=== PATIENT | female | born 1930 | race African-American/Black ===

== ENCOUNTER 2017-01-25 17:37 | Inpatient (IN) | payer MEDICARE, MEDICAID ==
[~2017-01-25] VITALS: Ht 154.9 cm; Wt 59.4 kg
[~2017-01-25 17:37] MED LIST: DEPAKOTE250 MG PO; HALDOL1 MG ORAL; HEPARIN1000 UNIT/ SQ; NAMENDA10 MG ORAL; NAMENDA5 MG ORAL; NORVASC2.5 MG ORAL; RISPERDAL1 MG PO
[2017-01-25] MEDS ORDERED: DEPAKOTE ER250 MG ORAL (17:38)
--- NOTE | 2017-01-25 17:56 | Emergency Room Report ---
History of Present Illness General Chief Complaint: Seizure Source: Family Member, EMS Present Illness HPI This is an 86-year-old female brought in by ambulance after increased altered level consciousness. Patient gradual onset of symptoms. The patient was noted to have prior history dementia as well as the patient had no prior history of seizures. The patient had previously been hospitalized [facility] for altered mental status. Patient had the had not been reportedly vomiting or having any diarrhea. She had past history of colitis. Allergies: Coded Allergies: No Known Allergies (Unverified , 01/03/16) Patient History Past Medical History: see triage record Reviewed Nursing Documentation: PMH: Agreed, PSxH: Agreed Nursing Documentation-PMH Hx Hypertension: Yes Hx Cancer: No Hx Gastrointestinal Problems: Yes - Gastroenteritis, Colitis, acute gastritis Hx Alzheimer's Disease: Yes Hx Parkinson's Disease: Yes Review of Systems All Other Systems: limited - by mental status Physical Exam Vital Signs Date Time Temp Pulse Resp B/P Pulse Ox O2 Delivery O2 Flow Rate FiO2 01/25/17 17:27 97.3 85 20 116/59 99 Nasal Cannula 2.0 Sp02 EP Interpretation: reviewed, normal General Appearance: normal inspection, alert, thin, Chronically Ill Head: atraumatic ENT: normal ENT inspection, hearing grossly normal, normal voice Neck: normal inspection, full range of motion, supple, no bony tend Respiratory: normal inspection, lungs clear, normal breath sounds, no respiratory distress, no retraction, no wheezing Cardiovascular #1: regular rate, rhythm, no edema Gastrointestinal: normal inspection, normal bowel sounds, non tender, soft, no guarding, no hernia Genitourinary: no CVA tenderness Musculoskeletal: normal inspection, back normal, normal range of motion Neurologic: normal inspection, alert, oriented x3, responsive, assistant in nursing III-XII nml as tested, speech normal Psychiatric: normal inspection, judgement/insight normal, mood/affect normal Skin: normal inspection, normal color, no rash Medical Decision Making Diagnostic Impression: Primary Impression: Encephalopathy Additional Impressions: Non-STEMI (non-ST elevated myocardial infarction) Dementia ER Course Patient presented for altered mental status.Differential diagnosis included but was not limited to ischemic stroke, subarachnoid hemorrhage, hypoglycemia, spinal cord injury, neurodegenerative disorder, urinary tract infection, hypoxemia.Because of complexity of patient's case laboratory testing and imaging studies were ordered. Patient was poorly cooperative and was given IV ativan for agitation. She waqs started on IV antibiorics for UTI. Patient was given rectal aspirin Dr. Costa was contacted for inpatient management. Labs Test 01/25/17 18:00 White Blood Count 8.4 K/UL (4.8-10.8) Red Blood Count 4.30 M/UL (4.20-5.40) Hemoglobin 11.6 G/DL (12.0-16.0) Hematocrit 37.1 % (37.0-47.0) Mean Corpuscular Volume 86 FL (80-99) Mean Corpuscular Hemoglobin 26.9 PG (27.0-31.0) Mean Corpuscular Hemoglobin Concent 31.2 G/DL (32.0-36.0) Red Cell Distribution Width 12.7 % (11.6-14.8) Platelet Count 197 K/UL (150-450) Mean Platelet Volume 7.9 FL (6.5-10.1) Neutrophils (%) (Auto) 61.1 % (45.0-75.0) Lymphocytes (%) (Auto) 30.1 % (20.0-45.0) Monocytes (%) (Auto) 7.3 % (1.0-10.0) Eosinophils (%) (Auto) 0.6 % (0.0-3.0) Basophils (%) (Auto) 0.9 % (0.0-2.0) Prothrombin Time 11.0 SEC (9.30-11.50) Prothromb Time International Ratio 1.1 (0.9-1.1) Activated Partial Thromboplast Time 24 SEC (23-33) Sodium Level 142 mEQ/L (135-145) Potassium Level 4.3 mEQ/L (3.4-4.9) Chloride Level 103 mEQ/L (98-107) Carbon Dioxide Level 21 mEQ/L (20-30) Anion Gap 18 (5-15) Blood Urea Nitrogen 14 mg/dL (7-23) Creatinine 0.8 mg/dL (0.5-0.9) Estimat Glomerular Filtration Rate mL/min (>60) Glucose Level 116 mg/dL (74-106) Lactic Acid Level 1.20 mmol/L (0.66-2.22) Calcium Level 10.0 mg/dL (8.6-10.2) Total Bilirubin 0.2 mg/dL (0.0-1.2) Aspartate Amino Transf (AST/SGOT) 15 U/L (5-40) Alanine Aminotransferase (ALT/SGPT) 7 U/L (3-33) Alkaline Phosphatase 106 U/L (35-104) Ammonia 25 umol/L (11-51) Total Creatine Kinase 72 U/L (26-140) Creatine Kinase MB 3.3 ng/mL (< 3.8) Creatine Kinase MB Relative Index 4.5 Troponin I 0.57 ng/mL (<=0.30) Total Protein 7.7 g/dL (6.6-8.7) Albumin 3.7 g/dL (3.5-5.2) Globulin 4.0 g/dL Albumin/Globulin Ratio 0.9 (1.0-2.7) EKG Diagnostic Results Rate: tachycardiac Rhythm: NSR ST Segments: no acute changes ASA given to the pt in ED: Yes - rectal Rhythm Strip Diag. Results EP Interpretation: yes Rhythm: NSR - 90s, no PVC's, no ectopy Last Vital Signs Date Time Temp Pulse Resp B/P Pulse Ox O2 Delivery O2 Flow Rate FiO2 01/25/17 17:27 97.3 85 20 116/59 99 Nasal Cannula 2.0 Status: unchanged Disposition: ADMITTED INPATIENT Condition: Serious Thiago Bansal Jan 25, 2017 17:56
[2017-01-25 17:59] VITALS: BP 132/102
[2017-01-25 18:12] LABS: BASOPHILS % (AUTO) 0.9 % (0.0-2.0); EOSINOPHILS % (AUTO) 0.6 % (0.0-3.0); LYMPHOCYTES % (AUTO) 30.1 % (20.0-45.0); MEAN CORPUSCULAR HEMOGLOBIN 26.9 PG (27.0-31.0); MEAN CORPUSCULAR HGB CONC 31.2 G/DL (32.0-36.0); MEAN CORPUSCULAR VOLUME 86 FL (80-99); MEAN PLATELET VOLUME 7.9 FL (6.5-10.1); MONOCYTES % (AUTO) 7.3 % (1.0-10.0); NEUTROPHILS % (AUTO) 61.1 % (45.0-75.0); PLATELET COUNT 197 K/UL (150-450); RED CELL DISTRIBUTION WIDTH 12.7 % (11.6-14.8); WHITE BLOOD COUNT 8.4 K/UL (4.8-10.8)
[2017-01-25 18:22] LABS: INR 1.1 (0.9-1.1)
[2017-01-25 18:31] LABS: AMMONIA 25 umol/L (11-51)
[2017-01-25 18:32] LABS: ALANINE AMINOTRANSFERASE 7 U/L (3-33); ALBUMIN/GLOBULIN RATIO 0.9 (1.0-2.7); ANION GAP 18 (5-15); ASPARTATE AMINO TRANSFERASE 15 U/L (5-40); CARBON DIOXIDE 21 mEQ/L (20-30); CHLORIDE 103 mEQ/L (98-107); CREATININE 0.8 mg/dL (0.5-0.9); HEMOLYSIS 15; POTASSIUM 4.3 mEQ/L (3.4-4.9); SODIUM 142 mEQ/L (135-145); TOTAL PROTEIN 7.7 g/dL (6.6-8.7)
[2017-01-25 18:37] LABS: TROPONIN I 0.57 ng/mL (<=0.30)
[2017-01-25 18:42] LABS: CKMB 3.3 ng/mL (< 3.8)
[2017-01-25] MEDS ORDERED: LORazepam Inj 2mg/ml 1ml IM ONE (18:45)
[2017-01-25 19:33] VITALS: BP 107/68
[2017-01-25 19:46] LABS: APPEARANCE,URINE CLEAR; KETONES,URINE NEGATIVE (NEGATIVE); LEUKOCYTE ESTERASE ,URINE 3+ (NEGATIVE); NITRITE,URINE POSITIVE (NEGATIVE); PH,URINE 6 (4.5-8.0); PROTEIN,URINE 1+ (NEGATIVE); UROBILINOGEN,URINE NORMAL MG/DL (0.0-1.0)
[2017-01-25 20:21] LABS: RBC,URINE 0-2 /HPF (0 - 2)
[2017-01-25 20:22] LABS: BACTERIA,URINE MANY /HPF; SQUAMOUS EPITHELIAL CELL,UR FEW /LPF (NONE/OCC)
[2017-01-25] MEDS ORDERED: cefTRIAXone 1 GM in D5W 55 ML IVPB ONE (20:45)
[2017-01-25] MEDS ORDERED: DOCUSATE SODIU100 MG ORAL (20:49)
[2017-01-25] MEDS ORDERED: FLEET ENEMA133 ML RECTAL (20:50)
[2017-01-25] MEDS ORDERED: BISACODYL5 MG ORAL (20:50)
[2017-01-25] MEDS ORDERED: MILK OF MA400 MG/51 ORAL (20:50)
[2017-01-25] MEDS ORDERED: MULTIVITAMINS1 EAC8 ORAL (20:51)
[2017-01-25] MEDS ORDERED: SENNOSIDES8.6 MG ORAL (20:52)
[2017-01-25] MEDS ORDERED: Acetaminophen 500mg (ES) tab ORAL PRN (21:00)
[2017-01-25] MEDS ORDERED: Milk of Magnesia 30ml Ud ORAL PRN (21:00)
[2017-01-25] MEDS ORDERED: Fleet's Enema 133ml RECTAL ONE (21:15)
[2017-01-25 21:20] VITALS: BP 105/70
[2017-01-25 21:55] VITALS: BP 106/71
[2017-01-25] MEDS: Docusate 100mg tablet ORAL SCH (22:00)
[2017-01-25] MEDS ORDERED: Enoxaparin 40mg Inj SUBQ SCH (23:00)
[2017-01-26 00:13] VITALS: BP 114/75
[2017-01-26 04:06] VITALS: BP 116/59
[2017-01-26 07:51] LABS: EOSINOPHILS % (AUTO) 1.9 % (0.0-3.0); LYMPHOCYTES % (AUTO) 30.6 % (20.0-45.0); MEAN CORPUSCULAR HEMOGLOBIN 27.3 PG (27.0-31.0); MEAN CORPUSCULAR HGB CONC 31.9 G/DL (32.0-36.0); MEAN CORPUSCULAR VOLUME 86 FL (80-99); MEAN PLATELET VOLUME 7.3 FL (6.5-10.1); MONOCYTES % (AUTO) 7.1 % (1.0-10.0); NEUTROPHILS % (AUTO) 59.4 % (45.0-75.0); PLATELET COUNT 175 K/UL (150-450); RED BLOOD COUNT 4.22 M/UL (4.20-5.40); RED CELL DISTRIBUTION WIDTH 13.4 % (11.6-14.8)
[2017-01-26 08:07] LABS: TROPONIN I < 0.30 ng/mL (<=0.30)
[2017-01-26 08:08] LABS: ALANINE AMINOTRANSFERASE 7 U/L (3-33); ALBUMIN/GLOBULIN RATIO 0.8 (1.0-2.7); ANION GAP 16 (5-15); ASPARTATE AMINO TRANSFERASE 15 U/L (5-40); CALCIUM 9.8 mg/dL (8.6-10.2); CARBON DIOXIDE 22 mEQ/L (20-30); CHLORIDE 107 mEQ/L (98-107); CHOLESTEROL 192 mg/dL (< 200); CHOLESTEROL/HDL RATIO 3.6 (3.3-4.4); CREATININE 0.7 mg/dL (0.5-0.9); HEMOLYSIS 2; LDL CHOLESTEROL (CALC.) 124 mg/dL (60-99); POTASSIUM 4.2 mEQ/L (3.4-4.9); SODIUM 145 mEQ/L (135-145); TOTAL PROTEIN 7.3 g/dL (6.6-8.7)
[2017-01-26 08:22] LABS: HEMOGLOBIN A1C 5.5 % (< 6.0)
[2017-01-26 08:40] VITALS: BP 100/60
[2017-01-26] MEDS ORDERED: Memantine 10mg tab ORAL SCH (09:00)
[2017-01-26] MEDS ORDERED: Aspirin EC 325mg tab ORAL SCH (09:00)
[2017-01-26] MEDS: Depakote 125mg Sprinkles ORAL SCH ×2 (09:47→21:00)
[2017-01-26] MEDS: Docusate 100mg tablet ORAL SCH ×2 (09:47→21:00)
[2017-01-26] MEDS: Enoxaparin 40mg Inj SUBQ SCH (09:48)
--- NOTE | 2017-01-26 10:15 | Diagnostic Imaging Report ---
Indications: 86-year-old female with increased altered level of consciousness, gradual onset of symptoms, prior history of dementia. Technique: Spiral acquisitions obtained through the brain. Angled axial and coronal 5 x 5 mm slices were reconstructed. Total dose length product 1368 mGycm. CTDI vol(s) 70 mGy Comparison: None Findings: No acute hemorrhage or edema. No mass effect or midline shift. Is marked age-related enlargement of ventricles and extra-axial spaces, and considerable periventricular deep white matter chronic ischemic change. The calvarium is intact. There is minimal ethmoid sinus mucosal disease. The mastoids are clear Impression: Chronic and age-related changes. Negative for acute intracranial bleed or mass effect The CT scanner at [facility] is accredited by the [employer] and the scans are performed using protocols designed to limit radiation exposure to as low as reasonably achievable to attain images of sufficient resolution adequate for diagnostic evaluation.
[2017-01-26 11:40] VITALS: BP 116/83
[2017-01-26] MEDS ORDERED: RisperiDONE 0.25mg tab ORAL PRN (13:00)
--- NOTE | 2017-01-26 13:06 | Neurology Progress Note ---
Objective Physical Exam Last Vital Signs Date Time Temp Pulse Resp B/P Pulse Ox O2 Delivery O2 Flow Rate FiO2 01/26/17 11:40 97.3 85 20 116/83 96 Room Air 01/26/17 04:06 2.0 01/26/17 01:24 28 Laboratory Tests Test 01/25/17 18:00 01/25/17 19:24 01/26/17 07:28 White Blood Count 8.4 K/UL (4.8-10.8) 6.0 K/UL (4.8-10.8) Red Blood Count 4.30 M/UL (4.20-5.40) 4.22 M/UL (4.20-5.40) Hemoglobin 11.6 G/DL (12.0-16.0) L 11.5 G/DL (12.0-16.0) L Hematocrit 37.1 % (37.0-47.0) 36.1 % (37.0-47.0) L Mean Corpuscular Volume 86 FL (80-99) 86 FL (80-99) Mean Corpuscular Hemoglobin 26.9 PG (27.0-31.0) L 27.3 PG (27.0-31.0) Mean Corpuscular Hemoglobin Concent 31.2 G/DL (32.0-36.0) L 31.9 G/DL (32.0-36.0) L Red Cell Distribution Width 12.7 % (11.6-14.8) 13.4 % (11.6-14.8) Platelet Count 197 K/UL (150-450) 175 K/UL (150-450) Mean Platelet Volume 7.9 FL (6.5-10.1) 7.3 FL (6.5-10.1) Neutrophils (%) (Auto) 61.1 % (45.0-75.0) 59.4 % (45.0-75.0) Lymphocytes (%) (Auto) 30.1 % (20.0-45.0) 30.6 % (20.0-45.0) Monocytes (%) (Auto) 7.3 % (1.0-10.0) 7.1 % (1.0-10.0) Eosinophils (%) (Auto) 0.6 % (0.0-3.0) 1.9 % (0.0-3.0) Basophils (%) (Auto) 0.9 % (0.0-2.0) 1.0 % (0.0-2.0) Prothrombin Time 11.0 SEC (9.30-11.50) Prothromb Time International Ratio 1.1 (0.9-1.1) Activated Partial Thromboplast Time 24 SEC (23-33) Sodium Level 142 mEQ/L (135-145) 145 mEQ/L (135-145) Potassium Level 4.3 mEQ/L (3.4-4.9) 4.2 mEQ/L (3.4-4.9) Chloride Level 103 mEQ/L (98-107) 107 mEQ/L (98-107) Carbon Dioxide Level 21 mEQ/L (20-30) 22 mEQ/L (20-30) Anion Gap 18 (5-15) H 16 (5-15) H Blood Urea Nitrogen 14 mg/dL (7-23) 12 mg/dL (7-23) Creatinine 0.8 mg/dL (0.5-0.9) 0.7 mg/dL (0.5-0.9) Estimat Glomerular Filtration Rate mL/min (>60) mL/min (>60) Glucose Level 116 mg/dL (74-106) H 95 mg/dL (74-106) Lactic Acid Level 1.20 mmol/L (0.66-2.22) Calcium Level 10.0 mg/dL (8.6-10.2) 9.8 mg/dL (8.6-10.2) Total Bilirubin 0.2 mg/dL (0.0-1.2) 0.2 mg/dL (0.0-1.2) Aspartate Amino Transf (AST/SGOT) 15 U/L (5-40) 15 U/L (5-40) Alanine Aminotransferase (ALT/SGPT) 7 U/L (3-33) 7 U/L (3-33) Alkaline Phosphatase 106 U/L (35-104) H 101 U/L (35-104) Ammonia 25 umol/L (11-51) Total Creatine Kinase 72 U/L (26-140) Creatine Kinase MB 3.3 ng/mL (< 3.8) Creatine Kinase MB Relative Index 4.5 Troponin I 0.57 ng/mL (<=0.30) *H < 0.30 ng/mL (<=0.30) Total Protein 7.7 g/dL (6.6-8.7) 7.3 g/dL (6.6-8.7) Albumin 3.7 g/dL (3.5-5.2) 3.4 g/dL (3.5-5.2) L Globulin 4.0 g/dL 3.9 g/dL Albumin/Globulin Ratio 0.9 (1.0-2.7) L 0.8 (1.0-2.7) L Urine Color Pale yellow Urine Appearance Clear Urine pH 6 (4.5-8.0) Urine Specific [place] 1.020 (1.005-1.035) Urine Protein 1+ (NEGATIVE) H Urine Glucose (UA) Negative (NEGATIVE) Urine Ketones Negative (NEGATIVE) Urine Occult Blood Negative (NEGATIVE) Urine Nitrite Positive (NEGATIVE) H Urine Bilirubin Negative (NEGATIVE) Urine Urobilinogen Normal MG/DL (0.0-1.0) Urine Leukocyte Esterase 3+ (NEGATIVE) H Urine RBC 0-2 /HPF (0 - 2) Urine WBC 5-10 /HPF (0 - 2) H Urine Squamous Epithelial Cells Few /LPF (NONE/OCC) Urine Bacteria Many /HPF (NONE) H Hemoglobin A1c 5.5 % (< 6.0) Pro-B-Type Natriuretic Peptide 3454 pg/mL (0-450) H Triglycerides Level 69 mg/dL (< 150) Cholesterol Level 192 mg/dL (< 200) LDL Cholesterol 124 mg/dL (60-99) H HDL Cholesterol 54 mg/dL (> 60) Cholesterol/HDL Ratio 3.6 (3.3-4.4) Thyroid Stimulating Hormone (TSH) 1.710 uIU/mL (0.300-4.500) Impression/Recommendations Problems: (1) Syncope, vasovagal (2) Dementia arising in the senium and presenium Status: unchanged Recommendations #[id number] UBALDO JUSTICE Jan 26, 2017 13:06
--- NOTE | 2017-01-26 13:44 | History & Physical ---
History and Physical History & Physicial Seen and examined. Dictation completed Sherlyn Costa MD Jan 26, 2017 13:44
--- NOTE | 2017-01-26 13:47 | General Progress Note ---
Assessment/Plan Status: stable Assessment/Plan 1- Acute Encephalopathy 2- UTI 3- Troponin leak 4- Dementia 5- Parkinsonim-agitation 6- PAH-mild 7-CHF- Diastolic Plan Neuro Cardio Psych are consulted and notified Subjective ROS Limited/Unobtainable: Yes Allergies: Coded Allergies: No Known Allergies (Unverified , 01/03/16) Objective Last 24 Hour Vital Signs Date Time Temp Pulse Resp B/P Pulse Ox O2 Delivery O2 Flow Rate FiO2 01/26/17 11:40 97.3 85 20 116/83 96 Room Air 01/26/17 09:48 76 100/60 01/26/17 08:40 97.0 76 20 100/60 97 Room Air 01/26/17 08:00 88 01/26/17 04:06 97.0 78 20 116/59 96 Nasal Cannula 2.0 01/26/17 04:00 82 01/26/17 01:24 96 Nasal Cannula 2.0 01/26/17 01:24 Nasal Cannula 2.0 28 01/26/17 00:13 97.0 77 20 114/75 96 Nasal Cannula 2.0 01/26/17 00:00 83 01/25/17 21:55 97.0 91 20 106/71 100 Room Air 01/25/17 21:24 96 01/25/17 21:20 90 17 105/70 100 Room Air 01/25/17 21:20 90 17 105/70 100 Room Air 01/25/17 19:33 86 16 107/68 100 Room Air 01/25/17 17:59 60 20 132/102 99 Nasal Cannula 2.0 01/25/17 17:59 85 20 Nasal Cannula 2.0 01/25/17 17:27 97.3 85 20 116/59 99 Nasal Cannula 2.0 Intake and Output 01/25/17 01/26/17 19:00 07:00 Intake Total 0 ml Output Total 500 ml Balance 0 ml -500 ml Intake Oral 0 ml Output Urine Total 500 ml # Bowel Movements 4 Laboratory Tests 01/25/17 18:00: White Blood Count 8.4, Red Blood Count 4.30, Hemoglobin 11.6L, Hematocrit 37.1, Mean Corpuscular Volume 86, Mean Corpuscular Hemoglobin 26.9L, Mean Corpuscular Hemoglobin Concent 31.2L, Red Cell Distribution Width 12.7, Platelet Count 197, Mean Platelet Volume 7.9, Neutrophils (%) (Auto) 61.1, Lymphocytes (%) (Auto) 30.1, Monocytes (%) (Auto) 7.3, Eosinophils (%) (Auto) 0.6, Basophils (%) (Auto ) 0.9, Prothrombin Time 11.0, Prothromb Time International Ratio 1.1, Activated Partial Thromboplast Time 24, Sodium Level 142, Potassium Level 4.3, Chloride Level 103, Carbon Dioxide Level 21, Anion Gap 18H, Blood Urea Nitrogen 14, Creatinine 0.8, Estimat Glomerular Filtration Rate , Glucose Level 116H, Lactic Acid Level 1.20, Calcium Level 10.0, Total Bilirubin 0.2, Aspartate Amino Transf (AST/SGOT) 15, Alanine Aminotransferase (ALT/SGPT) 7, Alkaline Phosphatase 106H, Ammonia 25, Total Creatine Kinase 72, Creatine Kinase MB 3.3, Creatine Kinase MB Relative Index 4.5, Troponin I 0.57*H, Total Protein 7.7, Albumin 3.7, Globulin 4.0, Albumin/Globulin Ratio 0.9L 01/25/17 19:24: Urine Color Pale yellow, Urine Appearance Clear, Urine pH 6, Urine Specific [place] 1.020, Urine Protein 1+H, Urine Glucose (UA) Negative, Urine Ketones Negative, Urine Occult Blood Negative, Urine Nitrite PositiveH, Urine Bilirubin Negative, Urine Urobilinogen Normal, Urine Leukocyte Esterase 3+H, Urine RBC 0-2 , Urine WBC 5-10H, Urine Squamous Epithelial Cells Few, Urine Bacteria ManyH 01/26/17 07:28: White Blood Count 6.0, Red Blood Count 4.22, Hemoglobin 11.5L, Hematocrit 36.1L , Mean Corpuscular Volume 86, Mean Corpuscular Hemoglobin 27.3, Mean Corpuscular Hemoglobin Concent 31.9L, Red Cell Distribution Width 13.4, Platelet Count 175, Mean Platelet Volume 7.3, Neutrophils (%) (Auto) 59.4, Lymphocytes (%) (Auto) 30.6, Monocytes (%) (Auto) 7.1, Eosinophils (%) (Auto) 1.9, Basophils (%) (Auto) 1.0, Sodium Level 145, Potassium Level 4.2, Chloride Level 107, Carbon Dioxide Level 22, Anion Gap 16H, Blood Urea Nitrogen 12, Creatinine 0.7, Estimat Glomerular Filtration Rate , Glucose Level 95, Calcium Level 9.8, Total Bilirubin 0.2, Aspartate Amino Transf (AST/SGOT) 15, Alanine Aminotransferase (ALT/SGPT) 7, Alkaline Phosphatase 101, Troponin I < 0.30, Total Protein 7.3, Albumin 3.4L, Globulin 3.9, Albumin/Globulin Ratio 0.8L, Hemoglobin A1c 5.5, Pro-B-Type Natriuretic Peptide 3454H, Triglycerides Level 69 , Cholesterol Level 192, LDL Cholesterol 124H, HDL Cholesterol 54, Cholesterol/ HDL Ratio 3.6, Thyroid Stimulating Hormone (TSH) 1.710 Height (Feet): 5 Height (Inches): 1.00 Weight (Pounds): 131 General Appearance: no apparent distress EENT: PERRL/EOMI Neck: supple Cardiovascular: normal rate Respiratory/Chest: lungs clear Abdomen: soft Extremities: non-tender Neurologic: disoriented Sherlyn Costa MD Jan 26, 2017 13:47
[2017-01-26 16:00] VITALS: BP 106/60
[2017-01-26 20:00] VITALS: BP 120/66
--- NOTE | 2017-01-26 20:08 | Consultation ---
DATE OF CONSULTATION: 01/26/2017 NEUROLOGICAL CONSULTATION CONSULTING PHYSICIAN: Martínez Medeiros M.D. REQUESTING PHYSICIAN: Sherlyn Costa M.D. HISTORY OF PRESENT ILLNESS: The patient is an 86-year-old female seen in neurological consultation to evaluate transient loss of consciousness. Apparently, the patient who is a resident of nursing facility was being fed by personnel when she suddenly lost consciousness, become limp, unresponsive. She was immediately given oxygen, placed in the supine position. Paramedics were called to the scene. She was brought to this hospital for further assessment. On admission, blood pressure 116/59 and temperature 97.3. Laboratory work included normal CBC studies, normal coagulation panel, urinalysis 5 to 10 WBCs, 1+ protein. Chemistry panel remarkable for troponin being elevated 0.57 which with the followup troponin 0.20. Her anion gap of 18. Blood sugar 116. Calcium 10.0. Otherwise unremarkable study. Stat CT of the brain was obtained revealed considerable amount of periventricular deep white matter chronic ischemic changes. No midline shift. No acute stroke. No hemorrhage noted. Since admission until present, the patient had no further paroxysmal activities. Most recent assessment of this patient obtained in December 2015 when she was observed for progressive cognitive loss, which dates back to about . The patient developed evidence of advanced dementia. In addition she presented with parkinsonian features, this most likely was vascular. She has a history of hypertension and chronic anemia. MEDICATIONS: Prior to admission treatment list included amlodipine, Depakote 125 twice a day, Haldol 1 mg daily, magnesium, Namenda supplement, Risperdal 1 mg b.i.d. ALLERGIES: None reported. SOCIAL HISTORY: Resident of nursing facility where she described to be wheelchair-bound for the last 1-1/2 years, she displays no behavioral abnormalities although does not like to be touched. FAMILY HISTORY: Noncontributory. REVIEW OF SYSTEM: Unable to obtain due to the patient's status. PHYSICAL EXAMINATION: GENERAL: A well-developed, well-nourished female, lying in bed. Her family trying to feed her. VITAL SIGNS: Now stable. Blood pressure 118/72, respiration 18. HEENT: Head normocephalic. No evidence of trauma. Eyes, ears, and throat are clear. NECK: Rigid in all directions. MUSCULOSKELETAL: Remarkable for remaining with a flexed both lower extremities. Peripheral pulses 1+ symmetric. MENTAL STATUS: The patient is awake, but noncommunicating. She is mumbling not coherently. She does not follow any commands and does not follow any simple instructions. She is quite resisting to examination, showing and pushing away. CRANIAL NERVE II: Pupils 3 mm responding to light and accommodation. Extraocular movements full range. CRANIAL NERVE V: Normal corneal responses. CRANIAL NERVE VII: No gross asymmetry. CRANIAL NERVE VIII: Normal hearing. CRANIAL NERVES IX THROUGH XII: Normal gag response. Able to swallow. MOTOR EXAMINATION: Diffuse rigidity predominantly both lower extremities, flexor contracture both lower extremities. Deep tendon reflexes brisk bilaterally. Plantar response is mute. SENSORY EXAMINATION: Withdrawing to pin stimulation both upper and lower extremities. IMPRESSION: The patient is an 86-year-old female presenting with transient loss of consciousness most likely vasovagal syncope. 1. Senile dementia, advanced. 2. History of . 3. Polypharmacy. RECOMMENDATION: 1. Orthostatic blood pressure. 2. Oral hydration. 3. Avoid unessential treatment, stop Namenda not effective in advanced form of dementia. 4. Continue with Depakote 125 mg twice a day but discontinue Haldol. Risperdal may remain 1 mg a day but only as needed for agitation, maintain symptomatic treatment. Thank you for allowing me to see this interesting patient in neurological consultation. Martínez Medeiros M.D. DR: Ervin JOB#: [id number] CC:
--- NOTE | 2017-01-26 21:14 | Cardiology Progress Note ---
Assessment/Plan Assessment/Plan The patient is seen and examined, full consult note will be dictated. Objective Last 24 Hour Vital Signs Date Time Temp Pulse Resp B/P Pulse Ox O2 Delivery O2 Flow Rate FiO2 01/26/17 20:09 Room Air 01/26/17 20:00 98.1 73 21 120/66 96 Room Air 01/26/17 19:00 96 Room Air 01/26/17 16:00 98.0 70 22 106/60 97 Room Air 01/26/17 16:00 94 01/26/17 12:00 82 01/26/17 11:40 97.3 85 20 116/83 96 Room Air 01/26/17 09:48 76 100/60 01/26/17 08:40 97.0 76 20 100/60 97 Room Air 01/26/17 08:00 88 01/26/17 04:06 97.0 78 20 116/59 96 Nasal Cannula 2.0 01/26/17 04:00 82 01/26/17 01:24 96 Nasal Cannula 2.0 01/26/17 01:24 Nasal Cannula 2.0 28 01/26/17 00:13 97.0 77 20 114/75 96 Nasal Cannula 2.0 01/26/17 00:00 83 01/25/17 21:55 97.0 91 20 106/71 100 Room Air 01/25/17 21:24 96 01/25/17 21:20 90 17 105/70 100 Room Air 01/25/17 21:20 90 17 105/70 100 Room Air Intake and Output 01/25/17 01/26/17 19:00 07:00 Intake Total 0 ml Output Total 500 ml Balance 0 ml -500 ml Intake Oral 0 ml Output Urine Total 500 ml # Bowel Movements 4 Laboratory Tests Test 01/26/17 07:28 White Blood Count 6.0 K/UL (4.8-10.8) Red Blood Count 4.22 M/UL (4.20-5.40) Hemoglobin 11.5 G/DL (12.0-16.0) L Hematocrit 36.1 % (37.0-47.0) L Mean Corpuscular Volume 86 FL (80-99) Mean Corpuscular Hemoglobin 27.3 PG (27.0-31.0) Mean Corpuscular Hemoglobin Concent 31.9 G/DL (32.0-36.0) L Red Cell Distribution Width 13.4 % (11.6-14.8) Platelet Count 175 K/UL (150-450) Mean Platelet Volume 7.3 FL (6.5-10.1) Neutrophils (%) (Auto) 59.4 % (45.0-75.0) Lymphocytes (%) (Auto) 30.6 % (20.0-45.0) Monocytes (%) (Auto) 7.1 % (1.0-10.0) Eosinophils (%) (Auto) 1.9 % (0.0-3.0) Basophils (%) (Auto) 1.0 % (0.0-2.0) Sodium Level 145 mEQ/L (135-145) Potassium Level 4.2 mEQ/L (3.4-4.9) Chloride Level 107 mEQ/L (98-107) Carbon Dioxide Level 22 mEQ/L (20-30) Anion Gap 16 (5-15) H Blood Urea Nitrogen 12 mg/dL (7-23) Creatinine 0.7 mg/dL (0.5-0.9) Estimat Glomerular Filtration Rate mL/min (>60) Glucose Level 95 mg/dL (74-106) Hemoglobin A1c 5.5 % (< 6.0) Calcium Level 9.8 mg/dL (8.6-10.2) Total Bilirubin 0.2 mg/dL (0.0-1.2) Aspartate Amino Transf (AST/SGOT) 15 U/L (5-40) Alanine Aminotransferase (ALT/SGPT) 7 U/L (3-33) Alkaline Phosphatase 101 U/L (35-104) Troponin I < 0.30 ng/mL (<=0.30) Pro-B-Type Natriuretic Peptide 3454 pg/mL (0-450) H Total Protein 7.3 g/dL (6.6-8.7) Albumin 3.4 g/dL (3.5-5.2) L Globulin 3.9 g/dL Albumin/Globulin Ratio 0.8 (1.0-2.7) L Triglycerides Level 69 mg/dL (< 150) Cholesterol Level 192 mg/dL (< 200) LDL Cholesterol 124 mg/dL (60-99) H HDL Cholesterol 54 mg/dL (> 60) Cholesterol/HDL Ratio 3.6 (3.3-4.4) Thyroid Stimulating Hormone (TSH) 1.710 uIU/mL (0.300-4.500) Microbiology Date/Time Source Procedure Growth Status 01/25/17 19:24 Urine,Clean Catch Urine Culture - Preliminary Resulted LOBITO PAULSON Jan 26, 2017 21:14
[2017-01-26] MEDS: Metoprolol 25mg tab ORAL SCH (21:30)
[2017-01-26] MEDS: cefTRIAXone 2 GM in D5W 110 ML IVPB SCH (22:38)
--- NOTE | 2017-01-26 23:08 | Consultation ---
DATE OF CONSULTATION: 01/26/2017 HISTORY OF PRESENT ILLNESS: The patient is an 86-year-old female who was brought into the hospital via ambulance after altered mental status. During the evaluation, the patient is not able to provide any history, presents with impairment of memory, and is presenting waxing and waning consciousness. The patient has also multiple medical problems, including the abdominal pain with nausea, vomiting, diarrhea, history of delirium, dementia, . The patient's medical history was reviewed as the patient is unable to provide any past history. PAST PSYCHIATRIC HISTORY: Diagnosed with dementia in the past. No history of aggressive behavior. Mood is neutral. Affect is flat. Congruent with mood. Thought process, there is a paucity of thought content. Thought content, no suicidal or homicidal ideation. The patient is alert however disoriented. Cognition is impaired. PAST MEDICAL HISTORY: Dehydration, history of urinary tract infection, and abdominal pain. ALLERGIES: No known drug allergies. SUBSTANCE ABUSE HISTORY: No known history of illicit drug use or alcohol. MENTAL STATUS EXAMINATION: The patient is alert, oriented to self. Mood is dysphoric and anxious. Affect is constricted. Congruent mood. Thought process is concrete. Thought content, there is no suicidal or homicidal ideation. ASSESSMENT: AXIS I: Delirium due to general medical condition. AXIS II: Deferred. AXIS III: Urinary tract infection, troponin leak, parkinsonism. PLAN: 1. Start the patient on low-dose of antipsychotics. She would benefit from low-dose of antipsychotics, however, the risperidone makes parkinsonism or Parkinson disease worse therefore I will start the patient on Seroquel . 2. We will continue to reassess. Alan Garcia M.D. DR: Wero JOB#: [id number] CC:
[2017-01-27 00:17] VITALS: BP 117/62
--- NOTE | 2017-01-27 00:38 | Consultation ---
DATE OF CONSULTATION: 01/26/2017 CARDIOLOGY CONSULTATION REFERRING PHYSICIAN: Sherlyn Costa M.D. REASON FOR CONSULTATION: Management of elevation of troponin level. HISTORY OF PRESENT ILLNESS: The patient is a very unfortunate 86-year-old female with underlying dementia, who presents to the hospital with altered level of consciousness. According to the records the patient's altered level of consciousness is new and more than her baseline dementia. The patient on arrival to the emergency room had a blood pressure 116/59 and pulse of 85. Initial evaluation in the emergency department determined the patient has encephalopathy. First troponin level was elevated at 0.57. Therefore, the patient was admitted for non-ST elevation myocardial infarction. She did not have any chest pain or shortness of breath. Initial 12-lead electrocardiogram done in the emergency department was significant for sinus tachycardia with no ST and T-wave abnormalities. Cardiology consultation was made at request of Dr. Costa for further assessment and evaluation of elevation of troponin level. PAST MEDICAL HISTORY: Parkinson disease, Alzheimer disease, history of gastroenteritis, history of colitis, and history of hypertension. PAST SURGICAL HISTORY: None. MEDICATIONS: List of medication in the nursing facility includes amlodipine 2.5 mg p.o. daily, Depakote 125 mg p.o. q.12 h., bisacodyl 10 mg p.o. daily, Colace 100 mg p.o. twice daily, Haldol 1 mg p.o. daily, heparin 5000 subcutaneous q.12 h., milk of magnesia 30 mL daily, and Namenda 5 mg p.o. daily, multivitamin one tablet p.o. daily, fleet enema 133 mL rectal p.r.n. constipation, Risperdal 1 mg p.o. twice daily, and Sennosides 8.6 mg at bedtime. ALLERGIES: No known drug allergies. SOCIAL HISTORY: Resident of nursing facility. She is wheelchair-bound for the past one and half year. Displays no behavioral abnormalities. FAMILY HISTORY: No premature coronary artery disease in first-degree relatives. REVIEW OF SYSTEMS: HEENT: Denies any headache, diplopia, or blurred vision. Constitutional: Denies any fever, chills, night sweats, or weight loss. Cardiovascular: Denies any chest pain, shortness breath, PND, orthopnea, or leg swelling. Pulmonary: Denies any cough, hemoptysis, or wheezing. Gastrointestinal: Denies any nausea, vomiting, diarrhea, constipation, abdominal pain, or GI bleed. Genitourinary: Denies any hematuria, dysuria, or incontinence. Neurology: Denies any motor dysfunction, sensory deficits, or altered speech. PHYSICAL EXAMINATION: GENERAL: The patient is a very unfortunate chronically ill frail female, in no apparent respiratory distress. VITAL SIGNS: Blood pressure is 116/59, respirations of 20, pulse of 85, temperature 97.3 degrees Fahrenheit, and O2 saturation 99% on nasal cannula. HEENT: Atraumatic and normocephalic. Anicteric. Pupils are equal, round, and reactive to light and accommodation. Extraocular muscles intact. NECK: JVP is less than 5 cm. No carotid bruits. Carotid upstrokes 2+ bilaterally. CARDIOVASCULAR: Normal S1 and S2. Regular rate and rhythm. No murmurs, gallops, or rubs. PMI is at the fourth intercostal space in the midclavicular line. LUNGS: Clear to auscultation bilaterally. ABDOMEN: Soft, nontender, and nondistended. No hepatosplenomegaly. Positive bowel sounds. EXTREMITIES: No evidence of edema, clubbing, or cyanosis. LABORATORY AND DIAGNOSTIC DATA: WBC 8.4, hemoglobin 11.6, hematocrit 37.1, and platelet count is 197,000. Sodium 142, potassium 4.3, chloride 103, bicarbonate 21, BUN of 14, creatinine 0.8 and glucose 116. Calcium is 10. INR is 1.1. CT of head showed chronic and age-related changes. Negative for intracranial bleed or mass affect. The 12-lead electrocardiogram, sinus tachycardia, rate of 103 with normal axis and no ST and T-wave abnormalities and borderline QT interval. ASSESSMENT AND PLAN: This is a very unfortunate 86-year-old female, seen in Cardiology consultation at request of Dr. Costa. 1. Non-ST elevated troponin level in this patient, possible non ST elevation myocardial infarction, although the patient does not have any chest pain. She is severely demented and do not communicate at this time. I will continue with serial troponin I level. Keep the patient hydrated. Use statins, beta-blockers and aspirin. in the management of this condition is medical therapy in view of the patient's underlying dementia. I do not believe that the patient will be a candidate for invasive procedure. A 2D echocardiography will be done to assess the left ventricular systolic function. 2. History of Alzheimer dementia. 3. History of Parkinson disease. 4. History of gastroesophageal reflux disease/gastritis/colitis. 5. History of hypertension. I would like to thank, Dr. Costa, for allowing me to participate in care of this patient. Felix Jones M.D. DR: CHECO JOB#: [id number] CC:
--- NOTE | 2017-01-27 02:28 | History and Physical Report ---
DATE OF ADMISSION: 01/25/2017 SOURCE OF INFORMATION: Family member and caregiver. HISTORY OF PRESENT ILLNESS: The patient is a pleasant 86-year-old female with prior history of agitated dementia. The patient currently is a resident of a half-way, has been reported to have the weakness and loss of consciousness. The patient had been sitting at the time of event therefore, there is no report of fall or trauma. REVIEW OF SYSTEMS: Negative for chest pain. Negative for diarrhea. Negative for constipation. Negative for severe swelling or pain in the extremities. Limited evaluation secondary to the patient's dementia. PAST MEDICAL HISTORY: Dementia-agitated type, hypertension, and Parkinson. PAST SURGICAL HISTORY: None. ALLERGIES: NKDA. CODE STATUS: Full Code. FAMILY HISTORY: Reviewed, noncontributory. SOCIAL HISTORY: [facility]. No prior history of illicit drug abuse, smoking or alcohol abuse. PHYSICAL EXAMINATION: VITAL SIGNS: Blood pressure 130/80, temperature 98.2 degrees on room air, respiratory rate 18, and pulse oximetry 98% on 2 liters of oxygen. HEENT: Head and neck, atraumatic and normocephalic. CHEST: Clear to auscultation. HEART: S1 and S2. Regular rate and rhythm. ABDOMEN: Soft. No organomegaly. MUSCULOSKELETAL: Limited examination, as the patient is not following the commands, however, atrophied musculature of the extremities. NEUROLOGIC: Patient is awake. He is not alert. The patient is not following commands. The patient is not making a sensible meaningful conversation. LABORATORY AND DIAGNOSTIC DATA: Imaging CT scan of the brain dated, 01/26/2017 is negative for any acute intracranial changes. Hospital medications including, but not limited to amlodipine, Depakote, Namenda, multivitamin, and Risperdal. Lab results dated, 01/25/2017 showed WBC 8.4, hemoglobin 11.6, and platelets 197,000. Sodium 145, potassium 4.2, BUN 12, and creatinine 0.7. ALT and AST normal. Troponin is abnormal at 0.5. LDL 124. ASSESSMENT: 1. Acute encephalopathy. Differential diagnosis are cardiovascular versus Neurologic compromise 2. Abnormal troponin, possibility of acute coronary syndrome cannot be excluded. 3. Abnormal beta-natriuretic peptide, possibility of heart failure cannot be excluded. 4. Dementia. 5. Parkinson with agitation. 6. Urinary tract infection. 7. Gastrointestinal and deep vein thrombosis prophylaxis. PLAN OF CARE: Cardiology, Dr. Jones and Neurology Dr. Medeiros has been consulted. I will initiate the patient for UTI on intravenous Rocephin. We will follow input from Neurology service. Sherlyn Costa M.D. DR: ANDREW JOB#: [id number] CC: HENRIQUE
[2017-01-27 03:57] VITALS: BP 113/70
[2017-01-27 05:44] LABS: CHOLESTEROL/HDL RATIO 3.5 (3.3-4.4)
[2017-01-27 05:47] LABS: TROPONIN I < 0.30 ng/mL (<=0.30)
[2017-01-27 08:00] VITALS: BP 104/41
--- NOTE | 2017-01-27 08:50 | General Progress Note ---
Assessment/Plan Status: stable Assessment/Plan 1. Acute encephalopathy. Differential diagnosis are cardiovascular versus Neurologic compromise 2. Abnormal troponin, 3. Abnormal beta-natriuretic peptide, possibility of heart failure cannot be excluded. 4. Dementia. 5. Parkinson with agitation. 6. Urinary tract infection. 7. Gastrointestinal and deep vein thrombosis prophylaxis. 6- PAH-mild 7-CHF- Diastolic Plan Neuro Cardio Psych are reviewed continue with Rocephin Subjective ROS Limited/Unobtainable: Yes - due to sever dementia Allergies: Coded Allergies: No Known Allergies (Unverified , 01/03/16) Objective Last 24 Hour Vital Signs Date Time Temp Pulse Resp B/P Pulse Ox O2 Delivery O2 Flow Rate FiO2 01/27/17 08:00 98.5 92 16 104/41 95 Room Air 01/27/17 04:30 89 01/27/17 03:57 98.3 71 17 113/70 96 Room Air 01/27/17 00:17 98.8 76 19 117/62 93 Room Air 01/26/17 20:09 Room Air 01/26/17 20:00 98.1 73 21 120/66 96 Room Air 01/26/17 19:00 96 Room Air 01/26/17 16:00 98.0 70 22 106/60 97 Room Air 01/26/17 16:00 94 01/26/17 12:00 82 01/26/17 11:40 97.3 85 20 116/83 96 Room Air 01/26/17 09:48 76 100/60 Intake and Output 01/26/17 01/27/17 19:00 07:00 Intake Total 360 ml Output Total 300 ml 1100 ml Balance 60 ml -1100 ml Intake Oral 360 ml Output Urine Total 300 ml 1100 ml Laboratory Tests 01/27/17 03:10: Troponin I < 0.30, Triglycerides Level 81, Cholesterol Level 207H, LDL Cholesterol 132H, HDL Cholesterol 59, Cholesterol/HDL Ratio 3.5 Height (Feet): 5 Height (Inches): 1.00 Weight (Pounds): 131 General Appearance: WD/WN EENT: PERRL/EOMI Neck: supple Cardiovascular: normal rate Respiratory/Chest: lungs clear Abdomen: soft Extremities: non-tender Neurologic: disoriented Sherlyn Costa MD Jan 27, 2017 08:50
[2017-01-27] MEDS: Depakote 125mg Sprinkles ORAL SCH ×2 (09:35→21:54)
[2017-01-27] MEDS: Metoprolol 25mg tab ORAL SCH ×2 (09:35→21:55)
[2017-01-27] MEDS: Docusate 100mg tablet ORAL SCH ×2 (09:36→21:55)
[2017-01-27] MEDS: Aspirin EC 325mg tab ORAL SCH (09:36)
[2017-01-27] MEDS: Enoxaparin 40mg Inj SUBQ SCH (09:38)
--- NOTE | 2017-01-27 10:46 | Diagnostic Imaging Report ---
Indication: Chest Pain Comparison: 01/26/2017 A single view chest radiograph was obtained. Findings: There is a vague density projected over the left lung base. A small focal infiltrate may be present and is unchanged. Bones are osteopenic. Heart size is normal. Impression: Unidentified density near the left costophrenic angle. Followup suggested.
[2017-01-27 12:00] VITALS: BP 138/61
[2017-01-27 16:00] VITALS: BP 115/58
--- NOTE | 2017-01-27 18:35 | Cardiology Report ---
APPROVED REPORT EKG Measurement Heart [id number] Sinus tachycardia Cannot rule out Anterior infarct, age undetermined Abnormal ECG
[2017-01-27 20:00] VITALS: BP 145/79
[2017-01-27] MEDS: cefTRIAXone 2 GM in D5W 110 ML IVPB SCH (21:54)
[2017-01-28] VITALS: BP 140/73
[2017-01-28 04:24] VITALS: BP 150/64
[2017-01-28 07:30] VITALS: BP 155/89
[2017-01-28] MEDS: Docusate 100mg tablet ORAL SCH ×2 (08:10→21:54)
[2017-01-28] MEDS: Metoprolol 25mg tab ORAL SCH ×2 (08:10→21:54)
[2017-01-28] MEDS: Depakote 125mg Sprinkles ORAL SCH ×2 (08:11→21:54)
[2017-01-28] MEDS: Aspirin EC 325mg tab ORAL SCH (08:11)
[2017-01-28] MEDS: Enoxaparin 40mg Inj SUBQ SCH (08:12)
[2017-01-28 11:28] VITALS: BP 101/58
--- NOTE | 2017-01-28 11:42 | General Progress Note ---
Assessment/Plan Status: stable Assessment/Plan 1. Acute encephalopathy. Differential diagnosis are cardiovascular versus Neurologic compromise 2. Abnormal troponin, 3. Abnormal beta-natriuretic peptide, possibility of heart failure cannot be excluded. 4. Dementia. 5. Parkinson with agitation. 6. Urinary tract infection. 7. Gastrointestinal and deep vein thrombosis prophylaxis. 6- PAH-mild 7-CHF- Diastolic Plan Neuro Cardio Psych are reviewed continue with current management Subjective ROS Limited/Unobtainable: Yes - severe dementia Allergies: Coded Allergies: No Known Allergies (Unverified , 01/03/16) Objective Last 24 Hour Vital Signs Date Time Temp Pulse Resp B/P Pulse Ox O2 Delivery O2 Flow Rate FiO2 01/28/17 11:28 97.3 81 20 101/58 97 Room Air 01/28/17 08:11 62 155/89 01/28/17 08:10 62 155/89 01/28/17 08:00 65 01/28/17 07:30 97.7 62 20 155/89 97 Room Air 01/28/17 04:24 97.0 89 20 150/64 100 Room Air 01/28/17 04:00 86 01/28/17 00:00 79 01/28/17 00:00 97.0 86 20 140/73 99 Room Air 01/27/17 21:55 82 145/79 01/27/17 20:00 100.8 82 19 145/79 96 Room Air 01/27/17 20:00 77 01/27/17 16:00 80 01/27/17 16:00 99.7 88 20 115/58 100 Room Air 01/27/17 12:00 97.7 71 17 138/61 98 Room Air 01/27/17 12:00 68 Intake and Output 01/27/17 01/28/17 19:00 07:00 Intake Total 660 ml Output Total 320 ml 600 ml Balance 340 ml -600 ml Intake Oral 660 ml Output Urine Total 320 ml 600 ml Height (Feet): 5 Height (Inches): 1.00 Weight (Pounds): 131 General Appearance: no apparent distress EENT: PERRL/EOMI Neck: supple Cardiovascular: normal rate Respiratory/Chest: lungs clear Abdomen: soft Extremities: non-tender Neurologic: disoriented Sherlyn Costa MD Jan 28, 2017 11:42
[2017-01-28 16:00] VITALS: BP 134/74
[2017-01-28 19:00] VITALS: BP 148/83
[2017-01-28] MEDS: cefTRIAXone 2 GM in D5W 110 ML IVPB SCH (21:53)
--- NOTE | 2017-01-28 23:34 | Cardiology Progress Note ---
Assessment/Plan Assessment/Plan 1. Possible NSTEMI, 2nd and third troponin values however were normal, continue ASA, metoprolol and statin therapy. She is not a suitable candidate for heart cath. 2. Sinus tachycardia, increase metoprolol 3. Hx of HTN, may have to increase CCB dose. 4. ALOC 5. Dementia Subjective Subjective Sinus tachycardia at 107. Objective Last 24 Hour Vital Signs Date Time Temp Pulse Resp B/P Pulse Ox O2 Delivery O2 Flow Rate FiO2 01/28/17 21:54 105 148/83 01/28/17 19:00 97.9 105 18 148/83 94 Room Air 01/28/17 16:00 97.5 69 18 134/74 97 Room Air 01/28/17 12:00 74 01/28/17 11:28 97.3 81 20 101/58 97 Room Air 01/28/17 08:11 62 155/89 01/28/17 08:10 62 155/89 01/28/17 08:00 65 01/28/17 07:30 97.7 62 20 155/89 97 Room Air 01/28/17 04:24 97.0 89 20 150/64 100 Room Air 01/28/17 04:00 86 01/28/17 00:00 79 01/28/17 00:00 97.0 86 20 140/73 99 Room Air Intake and Output 01/27/17 01/28/17 19:00 07:00 Intake Total 660 ml Output Total 320 ml 600 ml Balance 340 ml -600 ml Intake Oral 660 ml Output Urine Total 320 ml 600 ml 2D Echo: EF 55%, Mild LVH, Mild MR, Grade I LVDD, RVSP 43 mmHg Objective HEENT: Atraumatic and normocephalic. Anicteric. Pupils are equal, round, and reactive to light and accommodation. Extraocular muscles intact. NECK: JVP is less than 5 cm. No carotid bruits. Carotid upstrokes 2+ bilaterally. CARDIOVASCULAR: Normal S1 and S2. Regular rate and rhythm. Tachycardic. No murmurs, gallops, or rubs. PMI is at the fourth intercostal space in the midclavicular line. LUNGS: Clear to auscultation bilaterally. ABDOMEN: Soft, nontender, and nondistended. No hepatosplenomegaly. Positive bowel sounds. EXTREMITIES: No evidence of edema, clubbing, or cyanosis. LORENE,LOBITO Jan 28, 2017 23:34
[2017-01-29] VITALS: BP 140/83
[2017-01-29 04:00] VITALS: BP 138/90
[2017-01-29 08:00] VITALS: BP 124/63
[2017-01-29] MEDS: Metoprolol 25mg tab ORAL SCH ×2 (08:59→20:41)
[2017-01-29] MEDS: Docusate 100mg tablet ORAL SCH ×2 (08:59→20:40)
[2017-01-29] MEDS: Aspirin EC 325mg tab ORAL SCH (09:00)
[2017-01-29] MEDS: Depakote 125mg Sprinkles ORAL SCH ×2 (09:00→20:42)
[2017-01-29] MEDS: Enoxaparin 40mg Inj SUBQ SCH (09:02)
[2017-01-29 12:00] VITALS: BP 132/62
[2017-01-29 16:18] VITALS: BP 146/83
[2017-01-29 20:26] VITALS: BP 120/70
[2017-01-29] MEDS: cefTRIAXone 2 GM in D5W 110 ML IVPB SCH (20:40)
--- NOTE | 2017-01-29 21:37 | General Progress Note ---
Assessment/Plan Status: stable Assessment/Plan 1. Acute encephalopathy. Differential diagnosis are cardiovascular versus Neurologic compromise 2. Abnormal troponin, 3. Abnormal beta-natriuretic peptide, possibility of heart failure cannot be excluded. 4. Dementia. 5. Parkinson with agitation. 6. Urinary tract infection. 7. Gastrointestinal and deep vein thrombosis prophylaxis. 6- PAH-mild 7-CHF- Diastolic Plan Neuro Cardio Psych NOtes are reviewed Ok to dc to snif and f/u as outpatient Subjective ROS Limited/Unobtainable: Yes Allergies: Coded Allergies: No Known Allergies (Unverified , 01/03/16) Objective Last 24 Hour Vital Signs Date Time Temp Pulse Resp B/P Pulse Ox O2 Delivery O2 Flow Rate FiO2 01/29/17 20:41 81 120/70 01/29/17 20:26 97.9 81 18 120/70 95 Room Air 01/29/17 16:18 98.1 82 18 146/83 96 Room Air 01/29/17 16:00 79 01/29/17 12:00 97.2 80 18 132/62 98 Room Air 82 01/29/17 12:00 64 01/29/17 09:00 77 124/63 01/29/17 08:59 77 124/63 01/29/17 08:00 76 01/29/17 08:00 97.7 77 18 124/63 97 Room Air 01/29/17 07:57 Room Air 01/29/17 07:57 94 Room Air 01/29/17 04:00 97.9 89 18 138/90 95 Room Air 2.0 28 01/29/17 04:00 72 01/29/17 00:00 85 01/29/17 00:00 97.9 100 18 140/83 95 Room Air 2.0 28 01/28/17 21:54 105 148/83 Intake and Output 01/28/17 01/29/17 19:00 07:00 Intake Total 240 ml 240 ml Output Total 300 ml 750 ml Balance -60 ml -510 ml Intake Oral 240 ml 240 ml Output Urine Total 300 ml 750 ml # Bowel Movements 1 Height (Feet): 5 Height (Inches): 1.00 Weight (Pounds): 131 General Appearance: no apparent distress EENT: PERRL/EOMI Neck: supple Cardiovascular: normal rate Respiratory/Chest: lungs clear Abdomen: soft Neurologic: disoriented - at base line Sherlyn Costa MD Jan 29, 2017 21:37
--- NOTE | 2017-01-29 23:42 | Cardiology Progress Note ---
Assessment/Plan Assessment/Plan 1. Possible NSTEMI, 2nd and third troponin values however were normal, continue ASA, metoprolol and statin therapy. She is not a suitable candidate for heart cath. 2. Sinus tachycardia, resolved, continue metoprolol 3. Hx of HTN, overall good control in the past 24 hours, continue metoprolol and amlodipine Subjective Subjective Sinus rhythm at 81. Objective Last 24 Hour Vital Signs Date Time Temp Pulse Resp B/P Pulse Ox O2 Delivery O2 Flow Rate FiO2 01/29/17 20:41 81 120/70 01/29/17 20:26 97.9 81 18 120/70 95 Room Air 01/29/17 20:00 90 01/29/17 16:18 98.1 82 18 146/83 96 Room Air 01/29/17 16:00 79 01/29/17 12:00 97.2 80 18 132/62 98 Room Air 82 01/29/17 12:00 64 01/29/17 09:00 77 124/63 01/29/17 08:59 77 124/63 01/29/17 08:00 76 01/29/17 08:00 97.7 77 18 124/63 97 Room Air 01/29/17 07:57 Room Air 01/29/17 07:57 94 Room Air 01/29/17 04:00 97.9 89 18 138/90 95 Room Air 2.0 28 01/29/17 04:00 72 01/29/17 00:00 85 01/29/17 00:00 97.9 100 18 140/83 95 Room Air 2.0 28 Intake and Output 01/28/17 01/29/17 19:00 07:00 Intake Total 240 ml 240 ml Output Total 300 ml 750 ml Balance -60 ml -510 ml Intake Oral 240 ml 240 ml Output Urine Total 300 ml 750 ml # Bowel Movements 1 2D Echo: EF 55%, Mild LVH, Mild MR, Grade I LVDD, RVSP 43 mmHg Objective HEENT: Atraumatic and normocephalic. Anicteric. Pupils are equal, round, and reactive to light and accommodation. Extraocular muscles intact. NECK: JVP is less than 5 cm. No carotid bruits. Carotid upstrokes 2+ bilaterally. CARDIOVASCULAR: Normal S1 and S2. Regular rate and rhythm. No murmurs, gallops, or rubs. PMI is at the fourth intercostal space in the midclavicular line. LUNGS: Clear to auscultation bilaterally. ABDOMEN: Soft, nontender, and nondistended. No hepatosplenomegaly. Positive bowel sounds. EXTREMITIES: No evidence of edema, clubbing, or cyanosis. LOBITO PAULSON Jan 29, 2017 23:42
[2017-01-30] VITALS: BP 129/79
[2017-01-30 04:00] VITALS: BP 124/76
[2017-01-30 08:21] VITALS: BP 126/72
[2017-01-30] MEDS ORDERED: Aspirin Baby 81mg ORAL SCH ×2 (09:00→09:10)
[2017-01-30] MEDS: Docusate 100mg tablet ORAL SCH (09:25)
[2017-01-30] MEDS: Metoprolol 25mg tab ORAL SCH (09:25)
[2017-01-30] MEDS: Depakote 125mg Sprinkles ORAL SCH (09:25)
[2017-01-30] MEDS: Enoxaparin 40mg Inj SUBQ SCH (09:27)
[2017-01-30 11:31] VITALS: BP 116/78
--- NOTE | 2017-01-30 13:37 | General Progress Note ---
Assessment/Plan Status: stable Assessment/Plan 1. Acute encephalopathy. Differential diagnosis are cardiovascular versus Neurologic compromise 2. Abnormal troponin, 3. Abnormal beta-natriuretic peptide, possibility of heart failure cannot be excluded. 4. Dementia. 5. Parkinson with agitation. 6. Urinary tract infection. 7. Gastrointestinal and deep vein thrombosis prophylaxis. 6- PAH-mild 7-CHF- Diastolic Plan Neuro Cardio Psych NOtes are reviewed Ok to dc to snif and f/u as outpatient Subjective ROS Limited/Unobtainable: Yes Allergies: Coded Allergies: No Known Allergies (Unverified , 01/03/16) Objective Last 24 Hour Vital Signs Date Time Temp Pulse Resp B/P Pulse Ox O2 Delivery O2 Flow Rate FiO2 01/30/17 12:05 65 01/30/17 11:31 97.0 62 20 116/78 96 Room Air 01/30/17 09:25 66 126/72 01/30/17 09:25 66 126/72 01/30/17 08:21 97.2 66 20 126/72 95 Room Air 01/30/17 07:35 64 01/30/17 04:00 63 01/30/17 04:00 97.6 81 18 124/76 95 Room Air 01/30/17 00:00 63 01/30/17 00:00 97.8 84 18 129/79 95 Room Air 01/29/17 20:41 81 120/70 01/29/17 20:26 97.9 81 18 120/70 95 Room Air 01/29/17 20:00 90 01/29/17 16:18 98.1 82 18 146/83 96 Room Air 01/29/17 16:00 79 Intake and Output 01/29/17 01/30/17 19:00 07:00 Intake Total 480 ml 240 ml Output Total 230 ml 475 ml Balance 250 ml -235 ml Intake Oral 480 ml 240 ml Output Urine Total 230 ml 475 ml Height (Feet): 5 Height (Inches): 1.00 Weight (Pounds): 131 General Appearance: no apparent distress EENT: PERRL/EOMI Neck: supple Cardiovascular: normal rate Respiratory/Chest: lungs clear Abdomen: soft Extremities: non-tender Neurologic: disoriented - demented, at baseline Sherlyn Costa MD Jan 30, 2017 13:37
[2017-01-30] MEDS ORDERED: D5W 275ml ONE (14:59)
[2017-01-30] MEDS ORDERED: Ciprofloxacin 500mg tab ORAL SCH (18:00)
--- NOTE | 2017-01-31 12:17 | Cardiology Report ---
APPROVED REPORT EXAM: Two-dimensional and M-mode echocardiogram with Doppler and color Doppler. INDICATION Other M-Mode DIMENSIONS IVSd1.4 (0.7-1.1cm)Left Atrium (MM)3.5 (1.6-4.0cm) LVDd4.0 (3.5-5.6cm)Aortic Root2.4 (2.0-3.7cm) PWd0.8 (0.7-1.1cm)Aortic Cusp Exc.1.9 (1.5-2.0cm) LVDs2.6 (2.5-4.0cm) PWs1.5 cm Technically difficult study due to combative patient. Study quality precludes accurate assessment of regional wall motion. Normal left ventricular chamber size, systolic function and wall motion. Left ventricular ejection fraction estimated to be 55 %. Mild left ventricular hypertrophy. No evidence of pericardial fat or effusion. All other cardiac chamber sizes are within normal limits. Mild focal aortic valve sclerosis with adequate cusp excursion. Mildly thickened mitral valve leaflets with normal excursion. Mild mitral annulus and aortic root calcification. Normal pulmonic valve structure. Normal tricuspid valve structure. IVC at normal size with physiologic collapse. A color flow and spectral Doppler study was performed and revealed: No aortic regurgitation. Mild mitral regurgitation. Mitral diastolic velocities suggest reduced left ventricular relaxation (Grade I). Mild tricuspid regurgitation. Tricuspid systolic velocities suggests peak right ventricular systolic pressure of 43 mmHg, consistent with mild pulmonary hypertension. No pulmonic regurgitation present.
--- NOTE | 2017-01-31 15:28 | Discharge Summary ---
Discharge Summary Hospital Course Date of Admission Jan 25, 2017 at 19:35 Date of Discharge Jan 30, 2017 at 15:[address] elevation CT, Altered mental status HPI Paulie Bahena is a 86 year old female who was admitted on Jan 25, 2017 at 19 :[address] Elevation Myocardial Infarction Hospital Course dc summary #[id number] Discharge Condition Upon Discharge: stable Discharge Disposition Patient was discharged to SNF/Subacute Facility(03) Discharge Diagnoses: Discharge Instructions Discharge Instructions Special Instructions I have been assigned to complete a D/C Summary on this account. I was not involved in the patient management Cindy Escamilla NP ([place]) Jan 31, 2017 15:28
--- NOTE | 2017-02-01 03:38 | Discharge Summary 2 SIG ---
DATE OF ADMISSION: 01/25/2017 DATE OF DISCHARGE: 01/30/2017 REASON FOR ADMISSION: 86-year-old female brought to emergency room by ambulance after noted altered level of consciousness. Onset of symptoms was gradual. The patient with a prior history of senile dementia and parkinsonism. No history of seizure. Workup in the emergency room revealed first troponin positive at 0.57 and proBNP elevated at a 3454. Chest x-ray revealed no acute cardiopulmonary pathology. CT of the head revealed chronic age-related changes, but was negative for any acute intracranial bleeding or mass effect. Urinalysis was grossly positive for urinary tract infection. ADMITTING DIAGNOSES: 1. Acute encephalopathy. 2. Senile dementia. 3. Urinary tract infection. 4. Elevated troponin, possible non-ST elevation myocardial infarction. 5. Elevated proBNP. 6. Possible congestive heart failure HOSPITAL STAY: The patient was admitted. Neurology and Cardiology consults were requested. Echocardiogram revealed preserved ejection fraction of 55%, right ventricular systolic pressure of 43, and mild left ventricular hypertrophy. Cardiology followed. Next two troponin negative. Per Cardiology, the patient might have possible non-STEMI though last two troponin negative, however, the patient was not a candidate for cardiac catheterization as per cardiology. Blood pressure was controlled with calcium channel kiarra and beta-kiarra and was stable. Continue aspirin, beta kiarra, and statin. Lipid panel revealed elevated LDL and elevated total cholesterol. Educated on low fat low-cholesterol diet. Neurologist followed the patient as well. Neurologist recommended to avoid all unnecessary medication : stop Namenda since it has no effect in advanced dementia. He agreed to continue Depakote, but recommended to stop Haldol. Psychiatric evaluation was requested. Psychiatrist recommended instead of the Risperdal to start the patient on Seroquel since the patient has a parkinsonism, unclear vascular origin or true Parkinson. The patient however was not on any anti- Parkinson medication. Urine culture positive for E. coli. The patient status post treatment with antibiotics. The patient was stable for discharge. DISCHARGE DIAGNOSES: 1. Acute encephalopathy on chronic dementia 2. Advanced senile dementia. 3. Urinary tract infection/Escherichia coli. 4. Mild pulmonary hypertension. 5. Elevated troponin, possible non-ST elevation myocardial infarction. 6. Diastolic congestive heart failure. 7. Hypertension. 8. Parkinsonism. DISCHARGE MEDICATION: List of medication was sent to the long term facility. DISCHARGE INSTRUCTIONS: The patient was discharged to long term facility. FOLLOWUP: Follow up with medical doctor at the facility. Sherlyn Costa M.D. I have been assigned to dictate discharge summary on this account and I was not involved in the patient's management. Cnidy Escamilla (V anchtein) N.PCandice DR: JULIO JOB#: [id number] CC: HENRIQUE
== END 2017-01-30 15:00 | DRG 190 ==
LOC: EDBD 17:37 → EMR 18:05 → 2E 19:35 → EDBEDREQ 20:08
DX: I21.4 Non-ST elevation (NSTEMI) myocardial infarction (principal); G93.40 Encephalopathy, unspecified; I50.40 Unspecified combined systolic (congestive) and diastolic (congestive) heart failure; G20 Parkinson's disease; F05 Delirium due to known physiological condition; G30.9 Alzheimer's disease, unspecified; I10 Essential (primary) hypertension; K21.9 Gastro-esophageal reflux disease without esophagitis; N39.0 Urinary tract infection, site not specified; B96.20 Unspecified Escherichia coli [E. coli] as the cause of diseases classified elsewhere; I27.2 Other secondary pulmonary hypertension; F02.80 Dementia in other diseases classified elsewhere, unspecified severity, without behavioral disturbance, psychotic disturbance, mood disturbance, and anxiety; R00.0 Tachycardia, unspecified; R55 Syncope and collapse
CPT/HCPCS: 36415; 70450; 71010; 74230; 80053; 80061; 81003; 82140; 82550; 82553; 83036; 83605; 83880; 84443; 84484; 85025; 85610; 85730; 87040; 87081; 87086; 87181; 93005; 93306; 94760

== ENCOUNTER 2017-02-06 13:13 | Inpatient (IN) | payer MEDICARE, MEDICAID ==
[~2017-02-06] VITALS: Ht 160 cm; Wt 63.5 kg
[~2017-02-06 13:13] MED LIST changes: +BISACODYL5 MG ORAL; +DEPAKOTE ER250 MG ORAL; +DOCUSATE SODIU100 MG ORAL; +FLEET ENEMA133 ML RECTAL; +MILK OF MA400 MG/51 ORAL; +MULTIVITAMINS1 EAC8 ORAL; +SENNOSIDES8.6 MG ORAL
[2017-02-06 14:50] VITALS: BP 119/32
[2017-02-06 14:53] LABS: EOSINOPHILS % (AUTO) 1.4 % (0.0-3.0); LYMPHOCYTES % (AUTO) 24.2 % (20.0-45.0); MEAN CORPUSCULAR HEMOGLOBIN 27.9 PG (27.0-31.0); MEAN CORPUSCULAR HGB CONC 32.9 G/DL (32.0-36.0); MEAN CORPUSCULAR VOLUME 85 FL (80-99); MEAN PLATELET VOLUME 7.8 FL (6.5-10.1); MONOCYTES % (AUTO) 7.7 % (1.0-10.0); NEUTROPHILS % (AUTO) 65.6 % (45.0-75.0); PLATELET COUNT 198 K/UL (150-450); RED BLOOD COUNT 4.47 M/UL (4.20-5.40); RED CELL DISTRIBUTION WIDTH 13.1 % (11.6-14.8); WHITE BLOOD COUNT 6.7 K/UL (4.8-10.8)
[2017-02-06 14:59] LABS: APPEARANCE,URINE CLEAR; KETONES,URINE NEGATIVE (NEGATIVE); LEUKOCYTE ESTERASE ,URINE 1+ (NEGATIVE); NITRITE,URINE NEGATIVE (NEGATIVE); PH,URINE 5 (4.5-8.0); PROTEIN,URINE 1+ (NEGATIVE); UROBILINOGEN,URINE NORMAL MG/DL (0.0-1.0)
--- NOTE | 2017-02-06 15:01 | Emergency Room Report ---
History of Present Illness General Chief Complaint: Altered Level of Consciousness Source: Family Member, Medical Record, EMS Present Illness HPI The patient was brought in by EMS for altered level of consciousness. Apparently she had an episode of vomiting and then after that passed out for a period of time. This happened to her 2 weeks ago she was admitted to the hospital for evaluation. She stayed for 5 days. They initially thought was due to a urinary tract infection. She was [facility] back to the correction facility. Apparently her baseline his orientation x1-2. According to the BLS transporting a patient that is what her orientation is now. The patient states that she has some pain but denies other symptoms. She has not been eating well recently. She will not answer questions but is conversant. Allergies: Coded Allergies: No Known Allergies (Unverified , 01/03/16) Patient History Limited by: medical condition Past Medical History: see triage record Social History Narrative at [facility] Last Menstrual Period: na Reviewed Nursing Documentation: PMH: Agreed, PSxH: Agreed Nursing Documentation-[facility] Past Medical History: No History, Except For Hx Cardiac Problems: Yes Hx Hypertension: Yes Hx Cancer: No Hx Gastrointestinal Problems: Yes - gastroentiritis Hx Dementia: Yes Hx Alzheimer's Disease: Yes Hx Parkinson's Disease: Yes Review of Systems All Other Systems: limited Physical Exam Vital Signs Date Time Temp Pulse Resp B/P Pulse Ox O2 Delivery O2 Flow Rate FiO2 02/06/17 13:23 66 18 113/62 98 Room Air 02/06/17 14:50 98.3 General Appearance: alert, other - prefers to be in position, Chronically Ill Eyes: bilateral eye PERRL, bilateral eye normal inspection ENT: moist mucus membranes - poor dentition Neck: supple Respiratory: chest non-tender, lungs clear, normal breath sounds Cardiovascular #1: regular rate, rhythm, no edema Cardiovascular #2: 2+ radial (L) Gastrointestinal: normal bowel sounds, non tender, soft Musculoskeletal: normal inspection, no calf tenderness, other - prefers to keep legs and arms flexed, but able to extend (some possible discomfort) Neurologic: alert, motor strength/tone normal, DTRs symmetric, sensory intact Psychiatric: other - variable - either prefers not to answer or answers some questions and responsive Medical Decision Making Diagnostic Impression: Primary Impression: Syncope, vasovagal Additional Impression: Renal failure ER Course Patient with syncope after vomiting. Differential includes vasovagal, dehydration, arrhythmia, occult infection most others. She presented with similar complaints 2 weeks ago. Evaluation at that time was fairly unremarkable. Due to the possibility of arrhythmia and other occult process evaluation with labs, EKG, CT head and chest x-ray are undertaken. The patient will be treated with gentle hydration. Family here and state she is back to baseline. Discussion centered around the date or the patient observed again. The back it is a recurrent process is frustrating for them. However the fact that she is back to baseline they're considering observing her back at the correction facility. Review of labs revealed significant increase in urine creatinine. Please see below for further evaluation EKG, chest x-ray and CT of the head. Because of renal deterioration, she will be admitted. Admit med, Dr. Costa. Laboratory Tests Test 02/06/17 14:11 02/06/17 14:41 White Blood Count 6.7 K/UL (4.8-10.8) Red Blood Count 4.47 M/UL (4.20-5.40) Hemoglobin 12.5 G/DL (12.0-16.0) Hematocrit 37.9 % (37.0-47.0) Mean Corpuscular Volume 85 FL (80-99) Mean Corpuscular Hemoglobin 27.9 PG (27.0-31.0) Mean Corpuscular Hemoglobin Concent 32.9 G/DL (32.0-36.0) Red Cell Distribution Width 13.1 % (11.6-14.8) Platelet Count 198 K/UL (150-450) Mean Platelet Volume 7.8 FL (6.5-10.1) Neutrophils (%) (Auto) 65.6 % (45.0-75.0) Lymphocytes (%) (Auto) 24.2 % (20.0-45.0) Monocytes (%) (Auto) 7.7 % (1.0-10.0) Eosinophils (%) (Auto) 1.4 % (0.0-3.0) Basophils (%) (Auto) 1.0 % (0.0-2.0) Prothrombin Time 11.0 SEC (9.30-11.50) Prothrombin Time INR 1.1 (0.9-1.1) PTT 23 SEC (23-33) Sodium Level 143 mEQ/L (135-145) Potassium Level 4.5 mEQ/L (3.4-4.9) Chloride Level 102 mEQ/L (98-107) Carbon Dioxide Level 23 mEQ/L (20-30) Anion Gap 18 (5-15) H Blood Urea Nitrogen 22 mg/dL (7-23) Creatinine 1.9 mg/dL (0.5-0.9) H Estimate Glomerular Filtration Rate mL/min (>60) Glucose Level 96 mg/dL (74-106) Calcium Level 10.2 mg/dL (8.6-10.2) Total Bilirubin < 0.2 mg/dL (0.0-1.2) Aspartate Amino Transferase (AST) 22 U/L (5-40) Alanine Aminotransferase (ALT) 13 U/L (3-33) Alkaline Phosphatase 108 U/L (35-104) H Total Creatine Kinase 49 U/L (26-140) Troponin I < 0.30 ng/mL (<=0.30) Pro-B-Type Natriuretic Peptide 539 pg/mL (0-450) H Total Protein 7.7 g/dL (6.6-8.7) Albumin 3.8 g/dL (3.5-5.2) Globulin 3.9 g/dL Albumin/Globulin Ratio 0.9 (1.0-2.7) L Lipase 20 U/L (< 60) Urine Color Yellow Urine Appearance Clear Urine pH 5 (4.5-8.0) Urine Specific [place] 1.015 (1.005-1.035) Urine Protein 1+ (NEGATIVE) H Urine Glucose (UA) Negative (NEGATIVE) Urine Ketones Negative (NEGATIVE) Urine Occult Blood 5+ (NEGATIVE) H Urine Nitrite Negative (NEGATIVE) Urine Bilirubin Negative (NEGATIVE) Urine Urobilinogen Normal MG/DL (0.0-1.0) Urine Leukocyte Esterase 1+ (NEGATIVE) H Urine RBC 15-20 /HPF (0 - 2) H Urine WBC 0-2 /HPF (0 - 2) Urine Squamous Epithelial Cells Few /LPF (NONE/OCC) Urine Bacteria Few /HPF (NONE) Urine Opiates Screen Negative (NEGATIVE) Urine Barbiturates Screen Negative (NEGATIVE) Phencyclidine (PCP) Screen Negative (NEGATIVE) Urine Amphetamines Screen Negative (NEGATIVE) Urine Benzodiazepines Screen Negative (NEGATIVE) Urine Cocaine Screen Negative (NEGATIVE) Urine Marijuana (THC) Screen Negative (NEGATIVE) EKG Diagnostic Results Rate: normal Rhythm: NSR ST Segments: no acute changes Rhythm Strip Diag. Results EP Interpretation: yes Rhythm: NSR, no PVC's, no ectopy Chest X-Ray Diagnostic Results EP Interpretation: Yes Findings: no consolidation, no effusion, no pneumothorax, no acute cardiopulmonary disease, other - chronic changes R base and inc cor Number of Views: 1 Last Vital Signs Date Time Temp Pulse Resp B/P Pulse Ox O2 Delivery O2 Flow Rate FiO2 02/07/17 00:08 97.0 79 20 103/64 100 Room Air Status: improved Disposition: ADMITTED INPATIENT Condition: Serious Referrals: Sherlyn Costa MD (PCP) Rafael Arcos M.D. Feb 06, 2017 15:01
[2017-02-06 15:04] LABS: INR 1.1 (0.9-1.1)
[2017-02-06 15:11] LABS: BACTERIA,URINE FEW /HPF; RBC,URINE 15-20 /HPF (0 - 2); SQUAMOUS EPITHELIAL CELL,UR FEW /LPF (NONE/OCC); WBC,URINE 0-2 /HPF (0 - 2)
[2017-02-06 15:15] LABS: ALANINE AMINOTRANSFERASE 13 U/L (3-33); ALBUMIN/GLOBULIN RATIO 0.9 (1.0-2.7); ANION GAP 18 (5-15); ASPARTATE AMINO TRANSFERASE 22 U/L (5-40); CALCIUM 10.2 mg/dL (8.6-10.2); CARBON DIOXIDE 23 mEQ/L (20-30); CHLORIDE 102 mEQ/L (98-107); CREATININE 1.9 mg/dL (0.5-0.9); HEMOLYSIS 3; LIPASE 20 U/L (< 60); POTASSIUM 4.5 mEQ/L (3.4-4.9); SODIUM 143 mEQ/L (135-145); TOTAL PROTEIN 7.7 g/dL (6.6-8.7); TROPONIN I < 0.30 ng/mL (<=0.30)
[2017-02-06] MEDS ORDERED: ASPIRIN81 MG ORAL (15:17)
[2017-02-06] MEDS ORDERED: DULCOLAX10 MG RC (15:17)
[2017-02-06] MEDS ORDERED: METOPROLOL TART25 MG ORAL (15:20)
[2017-02-06] MEDS ORDERED: NORVASC2.5 MG ORAL (15:20)
[2017-02-06] MEDS ORDERED: MILK OF MA400 MG/51 ORAL (15:20)
[2017-02-06] MEDS ORDERED: TYLENOL EXTRA500 MG ORAL (15:22)
[2017-02-06] MEDS ORDERED: QUETIAPINE FUMA25 MG ORAL (15:22)
--- NOTE | 2017-02-06 15:58 | Diagnostic Imaging Report ---
Indications: Altered level of consciousness Technique: Continuous helical CT imaging of the brain was performed with automatic exposure control on a Siemens sensation [address] scanner. Axial and coronal images were reconstructed at 5 mm slice thickness and interval. CTDI volume(s): 70x2 mGy Total DLP: 1516 mGy-cm Findings: Comparison: 01/26/17 Extensive chronic microvascular ischemic changes throughout the bilateral white matter, diffuse atrophy are unchanged.. No evidence of mass or hemorrhage, other attenuation abnormality, mass effect, midline shift, hydrocephalus or increased intracranial pressure. Bone window images are unremarkable. Visualized paranasal sinuses and mastoid air cells are clear. IMPRESSION: No evidence of acute intracranial pathology, unchanged stable chronic age-related/ischemic changes as described. The CT scanner at [facility] is accredited by the [employer] and the scans are performed using protocols designed to limit radiation exposure to as low as reasonably achievable to attain images of sufficient resolution adequate for diagnostic evaluation.
[2017-02-06] MEDS ORDERED: Acetaminophen 500mg (ES) tab ORAL PRN (17:45)
[2017-02-06 18:57] VITALS: BP 110/56
[2017-02-06 20:00] VITALS: BP 120/63
[2017-02-06] MEDS: Metoprolol 50mg tab ORAL SCH (21:00)
[2017-02-06] MEDS ORDERED: Depakote 125mg Sprinkles ORAL ONE (21:00)
[2017-02-06] MEDS: D5NS 1,000 ML IV SCH (21:53)
[2017-02-06] MEDS: Heparin 5000 units/ml inj SUBQ SCH (21:54)
[2017-02-06] MEDS: Docusate 100mg tablet ORAL SCH (21:55)
[2017-02-07 00:08] VITALS: BP 103/64
[2017-02-07] MEDS ORDERED: ATORVASTATIN CA40 MG ORAL (03:28)
[2017-02-07 04:00] VITALS: BP 141/56
[2017-02-07 08:33] VITALS: BP 140/75
[2017-02-07] MEDS: Docusate 100mg tablet ORAL SCH ×2 (08:43→21:28)
[2017-02-07] MEDS: Multivitamin w/Minerals tab ORAL SCH (08:43)
[2017-02-07] MEDS: Metoprolol 50mg tab ORAL SCH ×2 (08:43→21:28)
[2017-02-07] MEDS: Aspirin Baby 81mg ORAL SCH (08:43)
[2017-02-07] MEDS: Heparin 5000 units/ml inj SUBQ SCH ×2 (08:46→21:29)
--- NOTE | 2017-02-07 09:47 | History & Physical ---
History and Physical History & Physicial seen and examined. Dictation completed Sherlyn Costa MD Feb 07, 2017 09:47
--- NOTE | 2017-02-07 09:51 | General Progress Note ---
Assessment/Plan Status: stable Assessment/Plan 1- Acute Encephalopathy 2- ARF 3- CHF-Diastolic 4- HTN 5- LSZ-Itdu-Wvm 6- Dehydration 7- Gi/DVT prophylaxia Plan: Neuro, Nephro, Cardio services consulted Subjective ROS Limited/Unobtainable: Yes Allergies: Coded Allergies: No Known Allergies (Unverified , 01/03/16) Objective Last 24 Hour Vital Signs Date Time Temp Pulse Resp B/P Pulse Ox O2 Delivery O2 Flow Rate FiO2 02/07/17 08:43 58 140/75 02/07/17 08:43 58 140/75 02/07/17 08:33 97.7 59 20 140/75 98 Room Air 02/07/17 04:00 97.7 73 20 141/56 100 Room Air 02/07/17 04:00 62 02/07/17 00:08 97.0 79 20 103/64 100 Room Air 02/07/17 00:00 60 02/06/17 21:00 59 95/43 02/06/17 20:00 65 02/06/17 20:00 97.0 72 20 120/63 94 Room Air 02/06/17 18:57 97.0 79 12 110/56 99 Room Air 02/06/17 18:12 91 17 111/86 99 Room Air 02/06/17 14:50 98.3 79 12 119/32 99 Room Air 02/06/17 13:23 66 18 113/62 98 Room Air Intake and Output 02/06/17 02/07/17 19:00 07:00 Intake Total 540 ml Output Total 170 ml 400 ml Balance -170 ml 140 ml Intake IV Total 540 ml Output Urine Total 170 ml 400 ml # Voids 1 Laboratory Tests 02/06/17 14:11: White Blood Count 6.7, Red Blood Count 4.47, Hemoglobin 12.5, Hematocrit 37.9, Mean Corpuscular Volume 85, Mean Corpuscular Hemoglobin 27.9, Mean Corpuscular Hemoglobin Concent 32.9, Red Cell Distribution Width 13.1, Platelet Count 198, Mean Platelet Volume 7.8, Neutrophils (%) (Auto) 65.6, Lymphocytes (%) (Auto) 24.2, Monocytes (%) (Auto) 7.7, Eosinophils (%) (Auto) 1.4, Basophils (%) (Auto ) 1.0, Prothrombin Time 11.0, Prothromb Time International Ratio 1.1, Activated Partial Thromboplast Time 23, Sodium Level 143, Potassium Level 4.5, Chloride Level 102, Carbon Dioxide Level 23, Anion Gap 18H, Blood Urea Nitrogen 22, Creatinine 1.9H, Estimat Glomerular Filtration Rate , Glucose Level 96, Calcium Level 10.2, Total Bilirubin < 0.2, Aspartate Amino Transf (AST/SGOT) 22, Alanine Aminotransferase (ALT/SGPT) 13, Alkaline Phosphatase 108H, Total Creatine Kinase 49, Troponin I < 0.30, Pro-B-Type Natriuretic Peptide 539H, Total Protein 7.7, Albumin 3.8, Globulin 3.9, Albumin/Globulin Ratio 0.9L, Lipase 20 02/06/17 14:41: Urine Color Yellow, Urine Appearance Clear, Urine pH 5, Urine Specific [place] 1.015, Urine Protein 1+H, Urine Glucose (UA) Negative, Urine Ketones Negative, Urine Occult Blood 5+H, Urine Nitrite Negative, Urine Bilirubin Negative, Urine Urobilinogen Normal, Urine Leukocyte Esterase 1+H, Urine RBC 15-20H, Urine WBC 0 -2, Urine Squamous Epithelial Cells Few, Urine Bacteria Few, Urine Opiates Screen Negative, Urine Barbiturates Screen Negative, Phencyclidine (PCP) Screen Negative, Urine Amphetamines Screen Negative, Urine Benzodiazepines Screen Negative, Urine Cocaine Screen Negative, Urine Marijuana (THC) Screen Negative Height (Feet): 5 Height (Inches): 3.00 Weight (Pounds): 140 General Appearance: WD/WN EENT: PERRL/EOMI Neck: supple Cardiovascular: normal rate Respiratory/Chest: lungs clear Abdomen: soft Extremities: non-tender Neurologic: disoriented, other - Demented. No verbal communication Sherlyn Costa MD Feb 07, 2017 09:51
[2017-02-07] MEDS: D5NS 1,000 ML IV SCH (10:40)
[2017-02-07] MEDS: Potassium Chloride 10 MEQ in D5 1/2NS 1,000 ML IV SCH ×2 (11:34→20:03)
[2017-02-07 11:52] VITALS: BP 120/66
[2017-02-07 13:00] LABS: TROPONIN I < 0.30 ng/mL (<=0.30)
--- NOTE | 2017-02-07 14:16 | Wound Care Consultation ---
Wound Assessment Wound Assessment #1: Wound Number: #1 Wound Present on Admission: Yes New Wound: No Status Change of Wound: No Wound Location Body Site Modif: left, lateral Wound Location Body Site: thigh Wound Type: other - open wound -etiology unknown. Edith Test: Does not Edith Wound Thickness: Full Thickness Wound Length: 1.0 Wound Width: 2.0 Wound Depth: 0.1 Percent of Wound [employer]/Red: 100 Wound Drainage Amount: None Wound Drainage Odor: None/Absent Tissue Surrounding Wound: Erythemic Wound General Appearance: Reddened Wound Assessment #2: Wound Number: #2 Wound Present on Admission: Yes New Wound: No Status Change of Wound: No Wound Location Body Site Modif: right Wound Location Body Site: sacral Wound Type: pressure ulcer Edith Test: Does not Edith Pressure Ulcer Stage: deep tissue injury Wound Thickness: Full Thickness Wound Length: 2.0 Wound Width: 2.0 Wound Depth: utd Percent of Wound Black/Brown: 50 - noted dark borwn color to site Percent of Wound Purple/Maroon: 50 Wound Drainage Amount: None Wound Drainage Odor: None/Absent Tissue Surrounding Wound: Intact Wound General Appearance: Reddened Wound Comment #1 left lateral thigh open wound etiology -unknown. #2 right sacral deep tissue injury. Recommendation. -Local wound care as ordered. -turn and reposition. -Keep clean and dry. -Optimize nutrition. -Avoid shear and friction. -Offload affected sites, heels and feet. -pressure reducing mattress -Assess and notify MD for any changes of condition noted to sites. RIYA MARC Feb 07, 2017 14:16
[2017-02-07] MEDS ORDERED: D5NS 1000ml IV ONE (15:35)
[2017-02-07] MEDS ORDERED: NS 550ML IV ONE (15:35)
[2017-02-07 15:44] VITALS: BP 93/53
[2017-02-07 20:00] VITALS: BP 108/80
--- NOTE | 2017-02-07 20:28 | History and Physical Report ---
DATE OF ADMISSION: 02/06/2017 SOURCE OF INFORMATION: EMR. HISTORY OF PRESENT ILLNESS: The patient is a pleasant 86-year-old female with prior history of significant dementia and reports of pulmonary arterial hypertension. Per the RN at the facility, the patient has another lapse in her consciousness associated with nausea and diffuse weakness. There is no history of fall. No seizure activity. No loss of consciousness. No loss of control over the urine or bowel has been reported. REVIEW OF SYSTEMS: Limited as the patient is significantly demented. No gross evidence of chest pain, shortness of breath, seizure activity, diarrhea, constipation, fever, or chills has been reported. PAST MEDICAL HISTORY: Hypertension; Parkinson's; dementia, agitated type; diastolic heart failure; and [id number] pulmonary arterial hypertension. PAST SURGICAL HISTORY: Denies. ALLERGIES: NKDA. CODE STATUS: Full Code. FAMILY HISTORY: Reviewed and noncontributory. SOCIAL HISTORY: The patient is currently living in a long-term facility. There is no prior history of illicit drug abuse, smoking, or alcohol abuse. PHYSICAL EXAMINATION: VITAL SIGNS: Blood pressure 110/60, temperature 98.2, pulse rate 68, temperature 98.3, and pulse oximetry 99% on room air. HEAD AND NECK: Normocephalic. CHEST: Clear to auscultation. HEART: S1 and S2. Regular rate and rhythm. Positive for sinus bradycardia. MUSCULOSKELETAL: Positive for atrophied musculature. NEUROLOGIC: The patient is awake. She is not communicating verbally. Gross dementia. LABORATORY AND DIAGNOSTIC DATA: Labs dated 02/06/2017 show UA with no evidence of active infection. BUN 22, creatinine 1.9. AST and ALT within normal limits. WBC 6.7, hemoglobin 12.5, and platelets 198,000. Serum toxicology is negative. Brain CT scan is obtained, shows no evidence of acute intracranial changes. OUTPATIENT MEDICATIONS: Reviewed as follows. Amlodipine, aspirin, atorvastatin, Colace, metoprolol, and Seroquel. ASSESSMENT: 1. Acute encephalopathy. Differential diagnosis is neurogenic including seizure disorder, cardiovascular including VertebroBasilar insufficiency. 2. Dementia with agitated features. 3. Acute renal failure (baseline is normal creatinine, now it is 1.9. 4. Hypertension. 5. Hyperlipidemia. 6. Gastrointestinal and deep vein thrombosis prophylaxis. PLAN OF CARE: Neurology, Nephrology, and Cardiology are consulted and notified. We will resume with the senior care medications. CT scan of the brain already obtained and negative. 2D echo, carotid duplex, and the renal ultrasound are requested. Provide with the hydration. Sherlyn Costa M.D. DR: STEPHANIE JOB#: [id number] CC: HENRIQUE
[2017-02-08] VITALS: BP 108/80
--- NOTE | 2017-02-08 00:48 | Consultation ---
DATE OF CONSULTATION: CONSULTING PHYSICIAN: Alan Garcia M.D. HISTORY OF PRESENT ILLNESS: This is an 86-year-old female with a history of dementia, pulmonary arterial hypertension, Parkinson disease, and heart failure, who has been admitted to the hospital due to altered mental status. I am though familiar with this patient during her last hospitalization at [facility]. The patient presented with similar presentation. During evaluation, she is a poor historian, her eyes was closed. She was unable to answer the questions appropriately. She is presenting with waxing and waning consciousness, has poor insight and judgment into her mental condition. She is disorganized. PAST PSYCHIATRIC HISTORY: She has been diagnosed with psychotic disorder, delirium, has been treated with Seroquel, which has worked for her, and agitation. PAST MEDICAL HISTORY: Significant for Parkinson disease, hypertension, diastolic heart failure, and pulmonary arterial hypertension. ALLERGIES: No known drug allergies. SUBSTANCE ABUSE HISTORY: No history of illicit drug use or alcohol. SOCIAL HISTORY: The [facility] is residing at a [facility]. MENTAL STATUS EXAMINATION: The patient is confused, disoriented. Mood is neutral during the evaluation. Affect is constricted, congruent with mood. Thought process, there is a paucity of thought content. Thought content, no suicidal or homicidal ideation. Cognition is impaired. ASSESSMENT: [place] I Delirium due to general medical condition. [place] II Deferred. [place] III As above. [place] IV Low. [place] V Global assessment of functioning is 10. PLAN: 1. The patient will be restarted on Seroquel 12.5 mg every six hours as needed for anxiety and agitation. 2. We will continue to follow and readjust the medications. Alan Garcia M.D. DR: ERIK JOB#: [id number] CC:
--- NOTE | 2017-02-08 03:08 | Consultation ---
DATE OF CONSULTATION: 02/07/2017 CARDIOLOGY CONSULTATION REQUESTING PHYSICIAN: Sherlyn Costa M.D. REASON FOR CONSULTATION: Altered mentation. HISTORY OF PRESENT ILLNESS: This is an 86-year-old female who was hospitalized here last week with urinary tract infection. She was sent back to a senior living facility. She returned to the hospital today with altered mentation and apparent lapse in consciousness. There is no associated seizure activity. No complaints of chest pain or shortness of breath. The patient has had a prior echocardiogram from 01/27/2017 that was reviewed and notable for a normal ejection fraction, concentric hypertrophy, and minimally increased PA systolic pressure. PAST MEDICAL HISTORY: Hypertension, Parkinson disease with dementia, diastolic dysfunction with history of congestive heart failure, and mild pulmonary hypertension. MEDICATIONS: Prior to admission, reviewed and reconciled. ALLERGIES: None. FAMILY HISTORY: Noncontributory. SOCIAL HISTORY: No record of smoking, alcohol, or substance abuse. REVIEW OF SYSTEMS: Cannot be obtained from the patient. Pertinent data from records and EMS documentation is outlined above. A 15 minutes time was spent reviewing the prior hospital chart from recent hospital stay. PHYSICAL EXAMINATION: Blood pressure 140/75, pulse 59, respirations 20, and afebrile. NECK: Supple. LUNGS: Clear. CARDIAC: Regular. Normal S1 and S2 with a fourth heart sound and a 1/6 early systolic murmur at the lower left sternal border. ABDOMEN: Soft and nontender. EXTREMITIES: No edema. NEUROLOGICAL: The patient is confused and agitated at times. LABORATORY AND DIAGNOSTIC DATA: Monitored rhythm, sinus rates from 53 to 83. White count 6.7 and hemoglobin 12.5. Potassium 4.5, BUN 22, and creatinine 1.9. Pro-natriuretic peptide is 539. IMPRESSION: 1. 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 2. Acute on chronic renal injury likely due to hypovolemia and acute tubular necrosis. 3. Chronic diastolic congestive heart failure. 4. No signs of acute coronary insufficiency. 5. Sinus bradycardia of no clinical significance. PLAN: 1. Intravenous fluid. 2. Hydration. 3. Antiplatelet therapy. 4. Orthostatic precautions. 5. Continue current antihypertensives with amlodipine and hold parameter. 6. Consider decrease in beta-kiarra dosing for persistent or worsening bradycardia. Rafael Andersen M.D. DR: HAJA JOB#: [id number] CC: HENRIQUE
[2017-02-08 04:00] VITALS: BP_SYST 115; BP_SYST 83; BP_DIAS 55; BP_DIAS 67
[2017-02-08] MEDS: Potassium Chloride 10 MEQ in D5 1/2NS 1,000 ML IV SCH (04:58)
[2017-02-08 06:22] LABS: BASOPHILS % (AUTO) 0.8 % (0.0-2.0); EOSINOPHILS % (AUTO) 2.5 % (0.0-3.0); LYMPHOCYTES % (AUTO) 32.3 % (20.0-45.0); MEAN CORPUSCULAR HEMOGLOBIN 26.9 PG (27.0-31.0); MEAN CORPUSCULAR HGB CONC 30.9 G/DL (32.0-36.0); MEAN CORPUSCULAR VOLUME 87 FL (80-99); MEAN PLATELET VOLUME 7.4 FL (6.5-10.1); MONOCYTES % (AUTO) 8.8 % (1.0-10.0); NEUTROPHILS % (AUTO) 55.7 % (45.0-75.0); PLATELET COUNT 160 K/UL (150-450); RED BLOOD COUNT 4.21 M/UL (4.20-5.40); RED CELL DISTRIBUTION WIDTH 13.5 % (11.6-14.8); WHITE BLOOD COUNT 6.3 K/UL (4.8-10.8)
[2017-02-08 06:52] LABS: TROPONIN I < 0.30 ng/mL (<=0.30)
[2017-02-08 06:56] LABS: ALANINE AMINOTRANSFERASE 9 U/L (3-33); ANION GAP 13 (5-15); ASPARTATE AMINO TRANSFERASE 19 U/L (5-40); CALCIUM 9.5 mg/dL (8.6-10.2); CARBON DIOXIDE 23 mEQ/L (20-30); CHLORIDE 110 mEQ/L (98-107); CREATININE 1.6 mg/dL (0.5-0.9); HEMOLYSIS 1; SODIUM 146 mEQ/L (135-145); TOTAL PROTEIN 6.8 g/dL (6.6-8.7)
[2017-02-08 07:51] VITALS: BP 149/69
[2017-02-08] MEDS: Docusate 100mg tablet ORAL SCH ×2 (08:36→18:11)
[2017-02-08] MEDS: Aspirin Baby 81mg ORAL SCH (08:37)
[2017-02-08] MEDS: Metoprolol 50mg tab ORAL SCH (08:37)
[2017-02-08] MEDS: Multivitamin w/Minerals tab ORAL SCH (08:37)
[2017-02-08] MEDS: Heparin 5000 units/ml inj SUBQ SCH ×2 (08:38→21:26)
--- NOTE | 2017-02-08 08:42 | Diagnostic Imaging Report ---
Indications: Chest pain Technique: Portable AP chest Findings: Comparison: 01/27/17 Cardiac silhouette remains normal in size. Pulmonary vasculature remains within normal limits. Left lung volume remains decreased compared to right with small poorly defined nodular density is suggested in its base, unchanged. Lungs and pleura remain otherwise clear. Mild calcification of the aortic arch is unchanged. IMPRESSION: No evidence of acute disease, unchanged Stable chronic changes as described. This includes apparent small nodular density left lung base which is nonspecific.
--- NOTE | 2017-02-08 09:35 | Consultation ---
Consult Note Consult Note asked to eval for high Cr Chief Complaint: Altered Level of Consciousness The patient was brought in by EMS for altered level of consciousness. Apparently she had an episode of vomiting and then after that passed out for a period of time. This happened to her 2 weeks ago she was admitted to the hospital for evaluation. She stayed for 5 days. They initially thought was due to a urinary tract infection. She was discharged back to the [facility] facility. Apparently her baseline his orientation x1-2. According to the BLS transporting a patient that is what her orientation is now. The patient states that she has some pain but denies other symptoms. She has not been eating well recently. She will not answer questions but is conversant. Past Medical History: Hx Cardiac Problems: Yes Hx Hypertension: Yes Hx Gastrointestinal Problems: Yes - gastroentiritis Hx Dementia: Yes Hx Alzheimer's Disease: Yes Hx Parkinson's Disease: Yes Assessment/Plan Abnormal renal parameters due to acute renal failure ( mainly dehydration) ? superimposed on CKD Others; 1. 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 2. Chronic diastolic congestive heart failure. 3. Sinus bradycardia of no clinical significance. 4. HTN 5. Anemia mild Plan; IV hydrate- watch for CHF symptoms- Monitor renal parameters- ST eval- Avoid nephrotoxics- Keep BP in check per orders GI ORELLANA Feb 08, 2017 09:35
--- NOTE | 2017-02-08 10:46 | General Progress Note ---
Assessment/Plan Status: stable Assessment/Plan 1. Acute on chronic encephalopathy. Differential diagnosis is neurogenic including seizure disorder, cardiovascular including Vertebro-basilar insufficiency. 2. Dementia with agitated features. 3. Acute renal failure (baseline is normal creatinine, now it is 1.9. 4. Hypertension. 5. Hyperlipidemia. 6. Gastrointestinal and deep vein thrombosis prophylaxis. Plan: Nephro, Cardio services Consultations are reviewed will continue current management Subjective ROS Limited/Unobtainable: Yes HEENT: Reports: no symptoms Cardiovascular: Reports: no symptoms Allergies: Coded Allergies: No Known Allergies (Unverified , 01/03/16) Objective Last 24 Hour Vital Signs Date Time Temp Pulse Resp B/P Pulse Ox O2 Delivery O2 Flow Rate FiO2 02/08/17 08:37 77 149/69 02/08/17 08:36 77 149/69 02/08/17 08:00 66 02/08/17 07:51 97.0 77 20 149/69 96 Room Air 02/08/17 04:00 68 02/08/17 04:00 97.2 60 18 115/67 100 Room Air 02/08/17 00:00 71 02/08/17 00:00 97.5 65 20 108/80 100 Room Air 02/07/17 21:28 98 108/80 02/07/17 20:00 98.4 98 20 108/80 100 Room Air 02/07/17 20:00 75 02/07/17 16:00 62 02/07/17 15:44 97.2 96 20 93/53 95 Room Air 02/07/17 12:00 72 02/07/17 11:52 97.5 83 20 120/66 98 Room Air Intake and Output 02/07/17 02/08/17 18:59 06:59 Intake Total 870 ml 1000 ml Output Total 700 ml Balance 870 ml 300 ml Intake IV Total 870 ml 1000 ml Output Urine Total 700 ml Laboratory Tests 02/07/17 11:55: Troponin I < 0.30 02/08/17 05:20: Troponin I < 0.30, White Blood Count 6.3, Red Blood Count 4.21, Hemoglobin 11.3L , Hematocrit 36.7L, Mean Corpuscular Volume 87, Mean Corpuscular Hemoglobin 26.9L, Mean Corpuscular Hemoglobin Concent 30.9L, Red Cell Distribution Width 13.5, Platelet Count 160, Mean Platelet Volume 7.4, Neutrophils (%) (Auto) 55.7 , Lymphocytes (%) (Auto) 32.3, Monocytes (%) (Auto) 8.8, Eosinophils (%) (Auto) 2.5, Basophils (%) (Auto) 0.8, Sodium Level 146H, Potassium Level 4.0, Chloride Level 110H, Carbon Dioxide Level 23, Anion Gap 13, Blood Urea Nitrogen 13, Creatinine 1.6H, Estimat Glomerular Filtration Rate , Glucose Level 104, Calcium Level 9.5, Total Bilirubin 0.2, Aspartate Amino Transf (AST/SGOT) 19, Alanine Aminotransferase (ALT/SGPT) 9, Alkaline Phosphatase 97, Total Protein 6.8, Albumin 3.4L, Globulin 3.4, Albumin/Globulin Ratio 1.0 Height (Feet): 5 Height (Inches): 3.00 Weight (Pounds): 140 General Appearance: WD/WN EENT: PERRL/EOMI Neck: supple Cardiovascular: normal rate Respiratory/Chest: lungs clear Abdomen: soft Genitourinary/Rectal: normal rectal exam Extremities: non-tender, other - not following commands Neurologic: disoriented, other - demented at her baseline Sherlyn Costa MD Feb 08, 2017 10:46
--- NOTE | 2017-02-08 11:00 | Neurology Progress Note ---
Interim History Interim History ROS Limited/Unobtainable: Yes Objective Physical Exam Last Vital Signs Date Time Temp Pulse Resp B/P Pulse Ox O2 Delivery O2 Flow Rate FiO2 02/08/17 08:37 77 149/69 02/08/17 07:51 97.0 20 96 Room Air Laboratory Tests Test 02/07/17 11:55 02/08/17 05:20 Troponin I < 0.30 ng/mL (<=0.30) < 0.30 ng/mL (<=0.30) White Blood Count 6.3 K/UL (4.8-10.8) Red Blood Count 4.21 M/UL (4.20-5.40) Hemoglobin 11.3 G/DL (12.0-16.0) L Hematocrit 36.7 % (37.0-47.0) L Mean Corpuscular Volume 87 FL (80-99) Mean Corpuscular Hemoglobin 26.9 PG (27.0-31.0) L Mean Corpuscular Hemoglobin Concent 30.9 G/DL (32.0-36.0) L Red Cell Distribution Width 13.5 % (11.6-14.8) Platelet Count 160 K/UL (150-450) Mean Platelet Volume 7.4 FL (6.5-10.1) Neutrophils (%) (Auto) 55.7 % (45.0-75.0) Lymphocytes (%) (Auto) 32.3 % (20.0-45.0) Monocytes (%) (Auto) 8.8 % (1.0-10.0) Eosinophils (%) (Auto) 2.5 % (0.0-3.0) Basophils (%) (Auto) 0.8 % (0.0-2.0) Sodium Level 146 mEQ/L (135-145) H Potassium Level 4.0 mEQ/L (3.4-4.9) Chloride Level 110 mEQ/L (98-107) H Carbon Dioxide Level 23 mEQ/L (20-30) Anion Gap 13 (5-15) Blood Urea Nitrogen 13 mg/dL (7-23) Creatinine 1.6 mg/dL (0.5-0.9) H Estimat Glomerular Filtration Rate mL/min (>60) Glucose Level 104 mg/dL (74-106) Calcium Level 9.5 mg/dL (8.6-10.2) Total Bilirubin 0.2 mg/dL (0.0-1.2) Aspartate Amino Transf (AST/SGOT) 19 U/L (5-40) Alanine Aminotransferase (ALT/SGPT) 9 U/L (3-33) Alkaline Phosphatase 97 U/L (35-104) Total Protein 6.8 g/dL (6.6-8.7) Albumin 3.4 g/dL (3.5-5.2) L Globulin 3.4 g/dL Albumin/Globulin Ratio 1.0 (1.0-2.7) Impression/Recommendations Problems: (1) Dementia arising in the senium and presenium (2) Syncope, vasovagal Status: stable Recommendations # [id number] UBALDO JUSTICE Feb 08, 2017 11:00
[2017-02-08 11:34] VITALS: BP 146/76
[2017-02-08] MEDS ORDERED: Docusate 100mg tablet ORAL SCH (13:00)
[2017-02-08 15:20] VITALS: BP 127/67
--- NOTE | 2017-02-08 15:50 | Cardiology Report ---
APPROVED REPORT EKG Measurement Heart [id number] Normal sinus rhythm Nonspecific T wave abnormality Abnormal ECG
--- NOTE | 2017-02-08 18:58 | Consultation ---
DATE OF CONSULTATION: 02/08/2017 NEUROLOGICAL CONSULTATION CONSULTING PHYSICIAN: Martínez Medeiros M.D. REFERRING PHYSICIAN: Sherlyn Costa M.D. HISTORY OF PRESENT ILLNESS: This is an 86-year-old female with advanced dementia, a resident of a nursing facility, was noted to have episodes of transient loss of consciousness and vomiting. The patient was brought to emergency room, at which point vital signs were stable. She was lying in a position and appeared to be chronically ill. Per family, they arrived and found her to be in baseline. Her initial lab work included a normal CBC study and normal coagulation panel. Negative toxicology, but chemistry panel with anion gap of 18, creatinine 1.9, and BNP of 539. Imaging studies obtained and this included CAT scan of the brain revealing no change from the previous study done on 01/26/2017. There were extensive chronic microvascular ischemic changes throughout the bilateral white matter with diffuse atrophy. No evidence of acute abnormalities. Her chest x-ray, no evidence of acute disease, stable chronic changes noted. There was no evidence of fall or loss of consciousness. No urinary or bowel incontinence reported. PAST MEDICAL HISTORY: The patient has a history of advanced senile dementia, hypertension, and hyperlipidemia. She is reportedly able to speak, but she is nonambulatory. FAMILY HISTORY: Unavailable. REVIEW OF SYMPTOMS: Unable to obtain due to the patient's status. MEDICATIONS: Treatment list prior to admission included amlodipine, aspirin, atorvastatin, Depakote, Haldol, magnesium, Namenda, metoprolol, Seroquel p.r.n., and Risperdal b.i.d. ALLERGIES: None reported. PHYSICAL EXAMINATION: GENERAL: A well-developed, well-nourished, elderly female, lying in bed fully awake. VITAL SIGNS: Stable blood pressure 149/69 and temperature 97.0 degrees. HEENT: Head is normocephalic. There is no evidence of trauma. Eyes, ears, and throat are clear. NECK: Rigid in all directions. MUSCULOSKELETAL: Diffuse rigidity. No deformities. Peripheral pulses 1+ and symmetric. NEUROLOGIC: Mental Status: The patient is awake. She is inappropriately smiling, but would not follow command, she was quite reluctant. She does not follow instruction, resistant to examination. CRANIAL NERVE II: Pupils both responding to light and accommodation. Extraocular movements full range. CRANIAL NERVE V: Normal corneal responses. CRANIAL NERVE VII: No facial asymmetry. CRANIAL NERVE VIII: Slight decrease in hearing. CRANIAL NERVE IX-XII: Tongue is in midline. MOTOR EXAMINATION: Diffuse rigidity, predominantly both lower extremities, spasticity in both lower extremities, able to move arms against the gravity, but able to lift legs against the gravity briefly. Deep tendon reflexes are brisk, 2+ upper extremity and 4+ both lower extremities. Plantar response is mute. SENSORY EXAMINATION: Withdrawing to pin stimulation in all limbs. Gait not tested. IMPRESSION: 1. This is an 86-year-old female with a history of transient loss of consciousness, most likely a syncopal episode with no evidence of seizure activity. 2. Congestive heart failure. 3. Renal insufficiency. 4. History of hypertension. RECOMMENDATION: The patient now with polypharmacy, which may contribute to orthostatic changes. I will recommend to hold unessential including Namenda, Ativan, and Lipitor. Sedation only p.r.n. May continue maintenance with Depakote 125 mg b.i.d. Recheck orthostatic blood pressure. Provide with proper hydration. Have cardiac monitoring to rule out cardiac arrhythmia. I will thank you for allowing me to see this interesting patient in neurological consultation. Martínez Medeiros M.D. DR: JOON JOB#: [id number] CC:
[2017-02-08 20:00] VITALS: BP 160/80
--- NOTE | 2017-02-08 20:08 | Progress Note ---
DATE: 02/06/2017 SUBJECTIVE: The patient is bed, calm. No anxiety or agitation. She is presenting with waxing and waning consciousness. She is not endorsing any aggressive behaviors, is compliant with care. MENTAL STATUS EXAMINATION: The patient is confused and disoriented, not able to provide any history. Mood is neutral. Affect is constricted. Congruent with mood. Thought process is concrete. Thought content, there is no suicidal or homicidal ideation. Cognition is impaired. ASSESSMENT: Cognitive impairment, delirium due to general medical condition. PLAN: 1. The patient will be continued with current medication. 2. Provide the patient with supportive therapy and reality orientation. Alan Garcia M.D. DR: Wero JOB#: [id number] CC:
[2017-02-08] MEDS ORDERED: Metoprolol 50mg tab ORAL SCH (21:00)
--- NOTE | 2017-02-08 23:47 | Progress Note ---
DATE: 02/08/2017 CARDIOLOGY PROGRESS NOTE SUBJECTIVE: The patient is confused. No loss of consciousness noted. Episodes of agitation seen. OBJECTIVE: VITAL SIGNS: Blood pressure 149/69, pulse 77, and respirations 18. NECK: Supple. LUNGS: Clear. CARDIAC: Regular rhythm and rate. Normal S1 and S2 with a fourth heart sound. ABDOMEN: Soft and nontender. No edema. NEUROLOGIC: Moderate to severe cognitive impairment. LABORATORY DATA: Sodium 146, potassium 4.0, chloride 110, bicarbonate 23, BUN 13, and creatinine 1.6. Albumin 3.4. IMPRESSION: 1. Hypovolemia, dehydration with hypernatremia and hyperchloremia. 2. Acute on chronic kidney injury. 3. Orthostatic syncope. 4. Dementia with agitation. 5. Hypertensive heart disease. 6. Asymptomatic sinus bradycardia, on beta-blockers. PLAN: 1. Hypotonic IV fluids. 2. Continue beta-kiarra regimen with titration. 3. Anti-platelet therapy. 4. Avoid sedation. 5. No additional diagnostic cardiac workup is anticipated. Rafael Andersen M.D. DR: YURIY JOB#: [id number] CC:
[2017-02-09 04:00] VITALS: BP 161/80
--- NOTE | 2017-02-09 04:08 | Progress Note ---
DATE: 02/08/2017 CARDIOLOGY PROGRESS NOTE SUBJECTIVE: The patient is with no distress. Monitored rhythm. Atrial fibrillation. No pauses. No recurring bradycardia. The patient is off Digitalis. He remains on low dose beta-kiarra. OBJECTIVE: VITAL SIGNS: Blood pressure 127/67 to 160/80, heart rate in the 60s, overall range 50 to 80. LUNGS: Coarse breath sounds. HEART: Irregularly irregular rhythm. ABDOMEN: Soft. EXTREMITIES: No edema. LABORATORY DATA: Pending. IMPRESSION: 1. Orthostatic hypotension. 2. Acute on chronic diastolic congestive heart failure. 3. Chronic kidney disease. 4. Syncope likely due to orthostatic event. 5. Atrial fibrillation, rate controlled now with resolved bradyarrhythmia. PLAN: 1. No resumption digoxin. 2. Continue cardiac monitoring. Maintain low-dose beta-kiarra. Avoid sedation. 3. Titrate antihypertensives. However, avoid blood pressure control in view of orthostasis. No additional cardiovascular workup presently planned. Rafael Andersen M.D. DR: KAVEH JOB#: [id number] CC: HENRIQUE
--- NOTE | 2017-02-09 04:08 | Progress Note ---
DATE: 02/09/2017 Cardiology Progress Note Covered for Duane Jones SUBJECTIVE: The patient is confused. No distress. Agitation at times. No loss of consciousness. OBJECTIVE: VITAL SIGNS: Blood pressure 160/80, earlier 127/67, heart rate 74, respiratory rate 20. NECK: Supple. LUNGS: Clear. CARDIAC: Regular rhythm rate. Normal S1 and S2 with a fourth heart sound. ABDOMEN: Soft. EXTREMITIES: No edema. IMPRESSION: 1. Vasovagal syncopal episode suspected due to orthostasis and hypovolemia. 2. Acute on chronic kidney injury due to hypovolemia, now improving with IV fluid hydration. 3. Cerebrovascular disease with dementia and agitation. 4. Acute on chronic encephalopathy. 5. Hypertensive heart disease. 6. Bradycardia, on beta-kiarra. PLAN: 1. Continue hydration. 2. Beta-kiarra dose to be decreased. Avoid tight blood pressure control in this clinical setting. 3. Maintain adequate hydration. No additional cardiovascular workup planned at this time. Rafael Andersen M.D. DR: JOEL JOB#: [id number] CC:
[2017-02-09 07:17] LABS: ALANINE AMINOTRANSFERASE 10 U/L (3-33); ANION GAP 13 (5-15); ASPARTATE AMINO TRANSFERASE 20 U/L (5-40); CALCIUM 9.6 mg/dL (8.6-10.2); CARBON DIOXIDE 23 mEQ/L (20-30); CHLORIDE 107 mEQ/L (98-107); CHOLESTEROL 132 mg/dL (< 200); CHOLESTEROL/HDL RATIO 2.4 (3.3-4.4); CREATININE 1.7 mg/dL (0.5-0.9); HEMOLYSIS 4; LDL CHOLESTEROL (CALC.) 63 mg/dL (60-99); SODIUM 143 mEQ/L (135-145); TOTAL PROTEIN 6.7 g/dL (6.6-8.7)
[2017-02-09 07:28] LABS: BASOPHILS % (AUTO) 0.9 % (0.0-2.0); MEAN CORPUSCULAR HEMOGLOBIN 27.3 PG (27.0-31.0); MEAN CORPUSCULAR HGB CONC 31.4 G/DL (32.0-36.0); MEAN CORPUSCULAR VOLUME 87 FL (80-99); MEAN PLATELET VOLUME 8.7 FL (6.5-10.1); MONOCYTES % (AUTO) 7.3 % (1.0-10.0); NEUTROPHILS % (AUTO) 52.8 % (45.0-75.0); PLATELET COUNT 161 K/UL (150-450); RED BLOOD COUNT 4.23 M/UL (4.20-5.40); RED CELL DISTRIBUTION WIDTH 12.9 % (11.6-14.8); WHITE BLOOD COUNT 6.3 K/UL (4.8-10.8)
[2017-02-09 07:29] LABS: FERRITIN 242 ng/mL (13-150)
[2017-02-09 07:46] LABS: CRP QUANT 0.6 mg/dL (< 0.5); MAGNESIUM 1.9 mg/dL (1.7-2.5); PHOSPHORUS 2.7 mg/dL (2.5-4.8); URIC ACID 7.2 mg/dL (3.0-7.5)
[2017-02-09 08:00] VITALS: BP 149/70
[2017-02-09] MEDS ORDERED: Multivitamin w/Minerals tab ORAL SCH (09:00)
[2017-02-09] MEDS ORDERED: Metoprolol 25mg tab ORAL SCH (09:00)
[2017-02-09] MEDS ORDERED: Aspirin Baby 81mg ORAL SCH (09:00)
[2017-02-09] MEDS: Docusate 100mg tablet ORAL SCH ×2 (09:27→13:35)
[2017-02-09] MEDS: Heparin 5000 units/ml inj SUBQ SCH (09:29)
--- NOTE | 2017-02-09 10:28 | General Progress Note ---
Assessment/Plan Status: stable Assessment/Plan 1. Acute on chronic encephalopathy. likely secondary to orthostatic hypotension 2. Dementia with agitated features. 3. Acute renal failure (baseline is normal creatinine) 4. Hypertension. 5. Hyperlipidemia. 6. Gastrointestinal and deep vein thrombosis prophylaxis. Plan: Nephro, Cardio services Consultations are reviewed ok to followup as outpatient Subjective ROS Limited/Unobtainable: Yes Constitutional: Reports: no symptoms Respiratory: Reports: no symptoms Allergies: Coded Allergies: No Known Allergies (Unverified , 01/03/16) Objective Last 24 Hour Vital Signs Date Time Temp Pulse Resp B/P Pulse Ox O2 Delivery O2 Flow Rate FiO2 02/09/17 09:28 77 149/70 02/09/17 09:28 77 149/70 02/09/17 04:00 96.4 72 22 161/80 100 Room Air 02/08/17 21:23 74 160/80 02/08/17 20:00 97.3 74 20 160/80 98 Room Air 02/08/17 15:20 97.2 78 20 127/67 98 Room Air 02/08/17 12:00 50 02/08/17 11:34 97.5 53 20 146/76 97 Room Air Intake and Output 02/08/17 02/09/17 19:00 07:00 Intake Total 915 ml 825 ml Output Total 652 ml 1150 ml Balance 263 ml -325 ml Intake Oral 240 ml IV Total 675 ml 825 ml Output Urine Total 652 ml 1150 ml Laboratory Tests 02/09/17 05:30: White Blood Count 6.3, Red Blood Count 4.23, Hemoglobin 11.6L, Hematocrit 36.8L , Mean Corpuscular Volume 87, Mean Corpuscular Hemoglobin 27.3, Mean Corpuscular Hemoglobin Concent 31.4L, Red Cell Distribution Width 12.9, Platelet Count 161, Mean Platelet Volume 8.7, Neutrophils (%) (Auto) 52.8, Lymphocytes (%) (Auto) 36.0, Monocytes (%) (Auto) 7.3, Eosinophils (%) (Auto) 3.0, Basophils (%) (Auto) 0.9, Sodium Level 143, Potassium Level 4.0, Chloride Level 107, Carbon Dioxide Level 23, Anion Gap 13, Blood Urea Nitrogen 11, Creatinine 1.7H, Estimat Glomerular Filtration Rate , Glucose Level 105, Uric Acid 7.2, Calcium Level 9.6, Phosphorus Level 2.7, Magnesium Level 1.9, Iron Level 89, Total Iron Binding Capacity 219L, Percent Iron Saturation 41, Unsaturated Iron Binding 130, Ferritin 242H, Total Bilirubin 0.3, Aspartate Amino Transf (AST/SGOT) 20, Alanine Aminotransferase (ALT/SGPT) 10, Alkaline Phosphatase 100, C-Reactive Protein, Quantitative 0.6H, Pro-B-Type Natriuretic Peptide 737H, Total Protein 6.7, Albumin 3.4L, Globulin 3.3, Albumin/Globulin Ratio 1.0, Triglycerides Level 68, Cholesterol Level 132, LDL Cholesterol 63, HDL Cholesterol 55, Cholesterol/HDL Ratio 2.4L, Vitamin B12 Level 865, Folate [ Pending], Thyroid Stimulating Hormone (TSH) 1.830 Height (Feet): 5 Height (Inches): 3.00 Weight (Pounds): 140 General Appearance: no apparent distress EENT: PERRL/EOMI Neck: supple Cardiovascular: normal rate Respiratory/Chest: lungs clear Abdomen: soft Extremities: non-tender Neurologic: disoriented, other - demented Sherlyn Costa MD Feb 09, 2017 10:28
[2017-02-09 12:00] VITALS: BP 143/54
--- NOTE | 2017-02-09 15:50 | General Progress Note ---
Assessment/Plan Status: stable, unchanged Status Narrative Cr 1.7 Assessment/Plan status: 1. 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 2. Chronic diastolic congestive heart failure. 3. Sinus bradycardia of no clinical significance. 4. HTN 5. Anemia mild Plan; IV hydrate- watch for CHF symptoms- Monitor renal parameters- ST eval- Avoid nephrotoxics- Keep BP in check per orders Subjective ROS Limited/Unobtainable: No Constitutional: Reports: malaise Allergies: Coded Allergies: No Known Allergies (Unverified , 01/03/16) Objective Last 24 Hour Vital Signs Date Time Temp Pulse Resp B/P Pulse Ox O2 Delivery O2 Flow Rate FiO2 02/09/17 12:00 98.1 65 18 143/54 100 Room Air 02/09/17 09:28 77 149/70 02/09/17 09:28 77 149/70 02/09/17 08:00 97.2 73 18 149/70 98 02/09/17 04:00 96.4 72 22 161/80 100 Room Air 02/08/17 21:23 74 160/80 02/08/17 20:00 97.3 74 20 160/80 98 Room Air Intake and Output 02/08/17 02/09/17 19:00 07:00 Intake Total 915 ml 825 ml Output Total 652 ml 1150 ml Balance 263 ml -325 ml Intake Oral 240 ml IV Total 675 ml 825 ml Output Urine Total 652 ml 1150 ml Laboratory Tests 02/09/17 05:30: White Blood Count 6.3, Red Blood Count 4.23, Hemoglobin 11.6L, Hematocrit 36.8L , Mean Corpuscular Volume 87, Mean Corpuscular Hemoglobin 27.3, Mean Corpuscular Hemoglobin Concent 31.4L, Red Cell Distribution Width 12.9, Platelet Count 161, Mean Platelet Volume 8.7, Neutrophils (%) (Auto) 52.8, Lymphocytes (%) (Auto) 36.0, Monocytes (%) (Auto) 7.3, Eosinophils (%) (Auto) 3.0, Basophils (%) (Auto) 0.9, Sodium Level 143, Potassium Level 4.0, Chloride Level 107, Carbon Dioxide Level 23, Anion Gap 13, Blood Urea Nitrogen 11, Creatinine 1.7H, Estimat Glomerular Filtration Rate , Glucose Level 105, Uric Acid 7.2, Calcium Level 9.6, Phosphorus Level 2.7, Magnesium Level 1.9, Iron Level 89, Total Iron Binding Capacity 219L, Percent Iron Saturation 41, Unsaturated Iron Binding 130, Ferritin 242H, Total Bilirubin 0.3, Aspartate Amino Transf (AST/SGOT) 20, Alanine Aminotransferase (ALT/SGPT) 10, Alkaline Phosphatase 100, C-Reactive Protein, Quantitative 0.6H, Pro-B-Type Natriuretic Peptide 737H, Total Protein 6.7, Albumin 3.4L, Globulin 3.3, Albumin/Globulin Ratio 1.0, Triglycerides Level 68, Cholesterol Level 132, LDL Cholesterol 63, HDL Cholesterol 55, Cholesterol/HDL Ratio 2.4L, Vitamin B12 Level 865, Folate [ Pending], Thyroid Stimulating Hormone (TSH) 1.830 Height (Feet): 5 Height (Inches): 3.00 Weight (Pounds): 140 General Appearance: no apparent distress Objective PE not changed GI ORELLANA Feb 09, 2017 15:50
--- NOTE | 2017-02-09 18:48 | Electroencephalogram ---
DATE OF PROCEDURE: 02/09/2017 REQUESTING PHYSICIAN: Sherlyn Costa M.D READING PHYSICIAN: Martínez Medeiros M.D. PROCEDURE PERFORMED: Electroencephalography. HISTORY: This 86 years old female with recurrent acute agitation. An EEG was requested to assess ongoing seizure activities. CURRENT TREATMENT: Lipitor and Seroquel. TECHNIQUE: EEG was done using 18 electrodes placed scalp to scalp, scalp to ear montages according to 10/20 [employer] System. The patient described as awake or drowsy, but poorly cooperative. Most wakeful portions of recording background activity consists of a mixture of medium voltage 4 to 6 cycles per second, at times mixed with 6 to 7 cycles per second activities. Irregular rhythm. Occasionally mixed with bilateral bifrontal or generalized polymorphic delta transients, and EMG artifacts. At the end of recording, the patient became agitated and pulled out electrodes. IMPRESSION: Abnormal EEG in presence of moderate diffuse slowing. COMMENT: Above abnormality is a nonspecific finding, may reflect multiple structural abnormalities. Toxic or metabolic derangement. Absence of paroxysmal event. Does not rule out seizure disorder. Martínez Medeiros M.D. DR: JOON JOB#: [id number] CC:
--- NOTE | 2017-02-09 21:38 | Progress Note ---
DATE: 02/09/2017 SUBJECTIVE: The patient is presenting with impairment constantly. Memory and attention is stable at baseline. No anxiety or agitation. He has waxing waning consciousness. Insight and judgment is non-existent. MENTAL STATUS EXAMINATION: The patient is arousable, oriented to only self. Mood is neutral. Affect is flat. Congruent mood. Thought process, there is a paucity of thought content. Thought content, no suicidal or homicidal ideation. ASSESSMENT: 1. Delirium. 2. Dementia. PLAN: The patient will be continued on current medication. No medication changes. Alan Garcia M.D. DR: KADEN JOB#: [id number] CC:
--- NOTE | 2017-02-10 11:31 | Discharge Summary ---
Discharge Summary Hospital Course Date of Admission Feb 06, 2017 at 16:50 Date of Discharge Feb 09, 2017 at 16:10 Admitting Diagnosis syncope/renal failure HPI Paulie Bahena is a 86 year old female who was admitted on Feb 06, 2017 at 16 :50 for Syncope,Renal Failure Hospital Course job #[id number] Discharge Discharge Disposition Patient was discharged to [facility] Discharge Diagnoses: Abena Dick NP Feb 10, 2017 11:31
--- NOTE | 2017-02-10 16:23 | Diagnostic Imaging Report ---
Indications: Abdominal pain, elevated hepatic and renal function tests Technique: Transabdominal real-time grayscale and duplex Doppler imaging of the upper abdomen and retroperitoneum was performed. Findings: Comparison: CT abdomen pelvis 01/03/2016. Liver normal size and surface contour, parenchymal echogenicity. Contains multiple circumscribed anechoic masses up to 12 cm.. Gallbladder contains multiple small echogenic shadowing foci.. No mural thickening or adjacent fluid collections. Sonographic Gallo sign negative.. Bile ducts normal caliber. Common bile duct 3 mm. Pancreas visualized portions unremarkable. Spleen unremarkable. Right kidney unremarkable. Left kidney unremarkable. Abdominal aorta, intrahepatic portion of inferior vena cava patent, normal caliber. Duplex Doppler imaging demonstrates antegrade flow in splenic, portal, hepatic veins. No ascites. IMPRESSION: Multiple hepatic cysts up to 12 cm Cholelithiasis.
--- NOTE | 2017-02-10 23:18 | Discharge Summary 2 SIG ---
DATE OF ADMISSION: 02/06/2017 DATE OF DISCHARGE: 02/09/2017 CONSULTANTS: 1. Alan Garcia M.D. 2. Rafael Andersen M.D. 3. Suman Lamar M.D. BRIEF HOSPITAL COURSE: The patient is an 86-year-old female with history significant for dementia and pulmonary arterial hypertension presented to ED for complaints of altered level of consciousness. Apparently, she had episodes of vomiting and passed out. Per nursing notes at the facility, the patient had another episode of loss of consciousness associated with nausea and diffuse weakness. There was no fall. No seizure activity. No loss of control on urine or bowel. On evaluation at ED, head CT showed no evidence of acute intracranial pathology with chronic age-related ischemic changes. Laboratories showed increase creatinine at 1.9. Urine toxicology was negative. She was given IV hydration and was seen by Dr. Andersen. Prior echocardiogram done on 01/27/2017 showed normal ejection fraction with concentric hypertrophy and minimally increased PA systolic pressure. She was given orthostatic precautions and was continued on antihypertensive and anti-platelet therapy. She had asymptomatic bradycardia and is on beta-kiarra. She had atrial fibrillation. Dr. Lamar was consulted for evaluation of elevated creatinine and was given intravenous hydration. Dr. Garcia was consulted as the patient was presenting with waxing and waning of consciousness and has poor insight and judgment into her mental condition. She was diagnosed to have delirium and was restarted on Seroquel 12.5 every 6 hours prn anxiety and agitation. An EEG was done and showed moderate diffuse slowing with absence of any paroxysmal event and the patient was discharged to group home. FINAL DIAGNOSES: 1. Acute on chronic metabolic encephalopathy secondary to orthostatic hypotension. 2. Dementia with agitated behavior issues. 3. Acute renal failure. 4. Hypertension. 5. Hyperlipidemia. 6. Bradycardia. 7. Syncope, likely due to orthostatic event. 8. Atrial fibrillation. 9. Left lateral thigh open wound and right sacral deep tissue injury present on admission. Sherlyn Costa M.D. I have been assigned to dictate discharge summary on this account and I was not involved in the patient's management. Abena Dick N.P. DR: ANÍBAL JOB#: [id number] CC: HENRIQUE
--- NOTE | 2017-02-16 23:26 | Diagnostic Imaging Report ---
APPROVED REPORT CPT Code: 16627 Vascular Symptoms Comments: Pain Tortuosity of the left internal/external carotid arteries. Limited due to patient status, moved head Doppler Spectral Velocity Analysis RightLeft RIGHT SIDE: CCA - Imaging reveals no significant plaque in the common carotid artery. ICA The Doppler signal indicates the degree of stenosis is mild (40%) in the internal carotid artery, and minimal (30%) in the external carotid artery. LEFT SIDE: CCA - Imaging reveals no significant plaque in the common carotid artery. ICA The Doppler signal indicates the degree of stenosis is mild (40%) in the internal carotid artery, and minimal (30%) in the external carotid artery. BILATERAL VERTEBRAL- The vertebral arteries were not well visualized.
== END 2017-02-09 16:10 | DRG 204 ==
LOC: EDBD 13:13 → EMR 14:08 → 2E 16:50 → EDBEDREQ 17:07 → 2E 19:14 → 4W 02-08 15:28
DX: I95.1 Orthostatic hypotension (principal); N17.0 Acute kidney failure with tubular necrosis; G93.49 Other encephalopathy; R00.1 Bradycardia, unspecified; F05 Delirium due to known physiological condition; E86.0 Dehydration; I50.32 Chronic diastolic (congestive) heart failure; G20 Parkinson's disease; I48.91 Unspecified atrial fibrillation; I11.0 Hypertensive heart disease with heart failure; I27.2 Other secondary pulmonary hypertension; D64.9 Anemia, unspecified; S71.102A Unspecified open wound, left thigh, initial encounter; E78.5 Hyperlipidemia, unspecified; F02.81 Dementia in other diseases classified elsewhere, unspecified severity, with behavioral disturbance; F29 Unspecified psychosis not due to a substance or known physiological condition; N18.9 Chronic kidney disease, unspecified; E86.1 Hypovolemia; I13.0 Hypertensive heart and chronic kidney disease with heart failure and stage 1 through stage 4 chronic kidney disease, or unspecified chronic kidney disease; S30.0XXA Contusion of lower back and pelvis, initial encounter; X58.XXXA Exposure to other specified factors, initial encounter
CPT/HCPCS: 36415; 70450; 71010; 76700; 80053; 80061; 80300; 81003; 82550; 82607; 82728; 82746; 82962; 83540; 83550; 83690; 83735; 83880; 84100; 84443; 84484; 84550; 85025; 85610; 85730; 86140; 87081; 93005; 93880; 95819